=== PATIENT | female | born 1990 | race Two or more races ===

== ENCOUNTER 2018-07-15 14:18 | Inpatient (IN) | payer BC, MEDICAID ==
[2018-07-15] MEDS ORDERED: cefOXitin 2 GM Vial ONE (15:02)
[2018-07-15] MEDS ORDERED: ePHEDrine 50 MG/ML SDV ONE (15:02)
[2018-07-15] MEDS ORDERED: Oxytocin 10 Units/1 ML SDV ONE (15:02)
--- NOTE | 2018-07-15 15:17 | PCM.LDHP ---
L&D History of Present Illness - General Date of Service: 07/15/18 Admit Problem/Dx: Admission Diagnosis/Problem Admission Diagnosis/Problem - Related Data Allergies/Adverse Reactions: Allergies Allergy/AdvReac Type Severity Reaction Status Date / Time No Known Allergies Allergy Verified 03/17/18 14:36 Home Medications: Home Meds PNV95/Ferrous Fumarate/FA [ Vitamin Tablet] 1 tab PO DAILY 03/17/18 [ History] Omeprazole 20 mg PO BEDTIME #30 cap.sr 03/18/18 [Rx] Ondansetron [Zofran ODT] 4 mg PO Q6H PRN #45 tab.dis 03/18/18 [Rx] hydrOXYzine pamoate [Vistaril] 25 - 50 mg PO BEDTIME PRN 30 Days cap 03/18/18 [ Rx] Amoxicillin 875 mg PO BID 7 Days #14 tablet 07/05/18 [Rx] H&P Review of Systems - Review of Systems: Review Of Systems: See Below General: Reports: No Symptoms HEENT: Reports: No Symptoms Pulmonary: Reports: No Symptoms Cardiovascular: Reports: No Symptoms Gastrointestinal: Reports: No Symptoms Genitourinary: Reports: No Symptoms Musculoskeletal: Reports: No Symptoms Skin: Reports: No Symptoms Psychiatric: Reports: No Symptoms Neurological: Reports: No Symptoms Hematologic/Lymphatic: Reports: No Symptoms Immunologic: Reports: No Symptoms L&D Exam - Exam Exam: See Below - OB Specific Contraction Intensity: Strong Movement: Active Heart Tones: Present Heart Rate (FHR) Variability: Moderate (6-25 bmp) Presentation: Vertex - Fox Score Fox Score Cervix Position: Anterior Fox Score Consistency: Soft Fox Score Effacement: >80% Fox Score Dilation: 3-4 cm Fox Score 's Station: -1 ,0 Fox Score Total: 11 - Exam General: Alert, Oriented, Cooperative HEENT: PERRLA, Conjunctiva Clear, EACs Clear, EOMI, Hearing Intact, Mucosa Moist & Mounds, Nares Patent, Normal Nasal Septum, Posterior Pharynx Clear, Pupils Equal, Pupils Reactive, TMs Clear Neck: Supple, Trachea Midline Lungs: Clear to Auscultation, Normal Respiratory Effort Cardiovascular: Regular Rate, Regular Rhythm GI/Abdominal Exam: Normal Bowel Sounds, Soft, Non-Tender, No Organomegaly, No Distention, No Abnormal Bruit, No Mass, Pelvis Stable Rectal Exam: Normal Exam, Normal Rectal Tone Genitourinary: Normal external exam, Normal bimanual exam, Normal speculum exam Back Exam: Normal Inspection, Full Range of Motion Extremities: Normal Inspection, Normal Range of Motion, Non-Tender, No Pedal Edema, Normal Capillary Refill Skin: Warm, Dry, Intact Neurological: Cranial Nerves Intact, Reflexes Equal Bilateral Psychiatric: Alert, Normal Affect, Normal Mood - Patient Data Lab Results Last 24 hrs: Laboratory Results - last 24 hr 07/15/18 Range/Units 14:43 Urine Color Yellow Urine Appearance Cloudy Urine pH 6.0 (4.5-8.0) Ur Specific [place] 1.015 (1.008-1.030) Urine Protein Negative (NEGATIVE) mg/dL Urine Glucose (UA) Negative (NEGATIVE) mg/dL Urine Ketones Negative (NEGATIVE) mg/dL Urine Occult Blood Negative (NEGATIVE) Urine Nitrite Negative (NEGATIVE) Urine Bilirubin Negative (NEGATIVE) Urine Urobilinogen Normal (NORMAL) mg/dL Ur Leukocyte Esterase Large (NEGATIVE) Urine RBC 0-5 (0-5) Urine WBC 30-40 H (0-5) Ur Epithelial Cells Moderate Amorphous Sediment Not seen Urine Bacteria Many Urine Mucus Moderate - Problem List (1) Labor established SNOMED Code(s): 47522675 ICD Code: [id number] - Status: Acute Current Visit: Yes (2) Non-Welsh speaking patient SNOMED Code(s): 269696366, 079066166 ICD Code: Z78.9 - OTHER SPECIFIED HEALTH STATUS Status: Acute Current Visit: No (3) SNOMED Code(s): 68049679 ICD Code: Z34.90 - ENCNTR FOR SUPRVSN OF NORMAL , UNSP, UNSP TRIMESTER Status: Acute Current Visit: No Qualifiers: Weeks of gestation: 38 weeks Qualified Code(s): Z3A.38 - 38 weeks gestation of Problem List Initiated/Reviewed/Updated: Yes Orders Last 24hrs: Active Orders 24 hr Category Date Time Status OB Check [OM.PC] Click to Edit Care 07/15/18 14:43 Ordered Assessment/Plan Comment:: 07/15/2018 28 yo came in laboring SVE-90/0 bulgy bag of payton Cece regular FHTs category one Patient a RCS Plan- OR crew and surgeon notified Will proceed with a repeat
[2018-07-15] MEDS ORDERED: Lactated Ringers 1,000 ML ONE (15:58)
[2018-07-15] MEDS ORDERED: Ondansetron 4 MG/2 ML SDV IV PRN (16:30)
[2018-07-15] MEDS ORDERED: Simethicone 80 MG Tab.Chew PO PRN (16:30)
[2018-07-15] MEDS ORDERED: Naloxone 0.4 MG/ML SDV IVPUSH PRN (16:30)
[2018-07-15] MEDS ORDERED: ePHEDrine 50 MG/ML SDV IVPUSH PRN (16:30)
[2018-07-15] MEDS ORDERED: diphenhydrAMINE 50 MG/ML SDV IVPUSH PRN (16:30)
[2018-07-15] MEDS ORDERED: Acetaminophen 325 MG Tab PO PRN (16:30)
[2018-07-15] MEDS ORDERED: Sennosides 8.6 MG Tab PO PRN (16:30)
[2018-07-15] MEDS ORDERED: Lanolin 100% Cream 40 GM Tube TOP PRN (16:30)
[2018-07-15] MEDS ORDERED: diphenhydrAMINE 25 MG Cap PO PRN (16:30)
[2018-07-15] MEDS ORDERED: Docusate Sodium 100 MG Cap PO PRN (16:30)
[2018-07-15] MEDS ORDERED: Aluminum Hydroxide/Magnesium Hydroxide/Simethicone Susp 30 ML Cup PO PRN (16:30)
[2018-07-15] MEDS: Acetaminophen/HYDROcodone 325-5 MG Tab PO PRN ×2 (17:25→22:20)
[2018-07-15] MEDS: Lactated Ringers 1,000 ML IV SCH ×2 (17:56→19:59)
[2018-07-15] MEDS: Ibuprofen 800 MG Tab PO PRN (18:36)
[2018-07-15] MEDS: Morphine 2 MG/ML Syringe IVPUSH PRN ×2 (19:21→20:36)
[2018-07-16] MEDS: Acetaminophen/HYDROcodone 325-5 MG Tab PO PRN ×4 (02:25→19:34)
[2018-07-16] MEDS: Ibuprofen 800 MG Tab PO PRN ×3 (04:24→21:01)
[2018-07-16] MEDS: Morphine 2 MG/ML Syringe IVPUSH PRN ×2 (05:23→07:35)
--- NOTE | 2018-07-16 08:12 | OR ---
DATE OF PROCEDURE: 07/15/2018 SURGEON: Hany Charles MD PROCEDURE: section. HUMAN RESOURCES TRAINER: Esther Melendez CNM PREOPERATIVE DIAGNOSIS: Recurrent section. POSTOPERATIVE DIAGNOSIS: Recurrent section. COMPLICATION: None. ANESTHESIA: Spinal. RISKS: Risks, benefits, alternatives, and limitations were explained both by Esther Melendez and myself, using manager consumer insights in Korean. The patient understands these risks and wishes to proceed. PROCEDURE IN DETAIL: She was placed in supine position. A Pfannenstiel-type incision was made, after being prepped and draped. This was performed through the previous section location. This was carried down with electrocautery to the external oblique aponeurosis, which was then opened also with electrocautery. A muscle sparing technique was used to enlarge the space for delivery. The peritoneum was then entered sharply. The bladder was identified and reflected inferiorly. The uterus was then readily identified. This was opened bluntly. This was then enlarged with the bandage scissors. The baby was delivered with mild difficulty. The cord was subsequently clamped x2 and transected. The uterus was unable to be delivered from the abdomen due to dense adhesions. This was then closed in 3 layers of #1 Vicryl one suture. Of note, the placenta was delivered in toto, and this was verified a second time. Once the uterus was closed, this was irrigated again as it was prior to closure of the uterus. The muscle was then reapproximated with #1 Vicryl suture. The fascia was then closed with #1 Vicryl suture in a running fashion x2. The subcutaneous tissue was closed. The skin was closed with 4-0 Vicryl. Dermabond was applied. The patient tolerated the procedure well. Hany Charles MD /[id number]
[2018-07-16] MEDS: Lactated Ringers 1,000 ML IV SCH (09:23)
--- NOTE | 2018-07-16 10:51 | PN ---
DATE OF SERVICE: 07/16/2018 SUBJECTIVE: The patient is doing very well today. Pain is better controlled this morning. No nausea, vomiting, shortness of breath, or chest pain. Some difficulties with breast feeding. OBJECTIVE: VITAL SIGNS: Vital signs are stable. CARDIOVASCULAR: Regular rate. RESPIRATORY: Lungs clear to auscultation bilaterally. SKIN: Incision healing well. LABORATORY RESULTS: Shows 60 of bilirubin with a hemoglobin of 12.5. ASSESSMENT: Status post section. PLAN: Continue advancing diet. We will work with document management consultant today and increase activity. Hany Charles MD /[id number]
[2018-07-17] MEDS: Acetaminophen/HYDROcodone 325-5 MG Tab PO PRN ×3 (00:37→12:35)
[2018-07-17] MEDS: Ibuprofen 800 MG Tab PO PRN ×2 (03:56→12:35)
--- NOTE | 2018-07-17 11:10 | PN ---
DATE OF SERVICE: 07/17/2018 SUBJECTIVE: The patient doing well today. Pain is well controlled. No nausea, vomiting, shortness of breath, or chest pain. Tolerating diet, passing gas. OBJECTIVE: VITAL SIGNS: Stable. She is afebrile. CARDIOVASCULAR: Regular rhythm and rate. RESPIRATORY: Lungs clear to auscultation bilaterally. ABDOMEN: Incision healing well without any evidence of cellulitis or drainage. ASSESSMENT: Status post . PLAN: The patient may be discharged today. Discharge medications were given. She still has a few things to work on with the OB group. Meantime, she can shower. She is tolerating diet. She is on ibuprofen only for pain at this point. Hany Charles MD /[id number]
== END 2018-07-17 13:20 | disposition home or self-care (01) | DRG 540 ==
LOC: JP.OBCHECK 14:18 → JP.OB 14:55 → JP.MS 15:52
PROVIDERS: ADMIT Advanced Practice Midwife; ATTEND Surgery
PROC: 10D00Z1 Extraction of Products of Conception, Low, Open Approach (ICD-10-PCS; principal; 2018-07-15)
DX: O34.211 Maternal care for low transverse scar from previous cesarean delivery (principal); N85.8 Other specified noninflammatory disorders of uterus; Z37.0 Single live birth; O99.824 Streptococcus B carrier state complicating childbirth; Z3A.38 38 weeks gestation of pregnancy
CPT/HCPCS: 36415; 59409; 80048; 80305-QW; 81001; 85025; A9270-GY; J0694; J2270; J2590; J7120

== ENCOUNTER 2018-08-07 08:53 | Emergency (ER) | payer BC, MEDICAID ==
[2018-08-07] MEDS ORDERED: Sodium Chloride 0.9% 10 ML Syringe FLUSH PRN (09:28)
[2018-08-07] MEDS ORDERED: Lactated Ringers 1,000 ML IV SCH (09:30)
[2018-08-07] MEDS ORDERED: fentaNYL 100 MCG/2 ML SDV IVPUSH ONE (09:30)
--- NOTE | 2018-08-07 09:31 | EDM.PDOC ---
ED HPI GENERAL MEDICAL PROBLEM - General Chief Complaint: Abdominal Pain Stated Complaint: [facility] Time Seen by Provider: 08/07/18 09:24 Source of Information: Reports: Patient, RN Notes Reviewed History Limitations: Reports: Language Barrier - History of Present Illness INITIAL COMMENTS - FREE TEXT/NARRATIVE: 28-year-old female presents emergency department today complaint of right upper quadrant abdominal pain, she is status post 3 weeks does have a known history of gallbladder disease urine . States the pain has gotten significantly worse and right upper quadrant, is [place] speaking so there is a language barrier Right Middle Abdomen Pain Score (Numeric/FACES): 10 - Related Data Allergies Allergy/AdvReac Type Severity Reaction Status Date / Time No Known Allergies Allergy Verified 03/17/18 14:36 Home Meds: Home Meds PNV95/Ferrous Fumarate/FA [ Vitamin Tablet] 1 tab PO DAILY 03/17/18 [ History] Omeprazole 20 mg PO BEDTIME #30 cap.sr 03/18/18 [Rx] hydrOXYzine pamoate [Vistaril] 25 - 50 mg PO BEDTIME PRN 30 Days cap 03/18/18 [ Rx] Past Medical History Gastrointestinal History: Reports: Other (See Below) Other Gastrointestinal History: 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: Social & Family History - Family History Family Medical History: Noncontributory - Tobacco Use Smoking Status *Q: Never Smoker - Caffeine Use Caffeine Use: Reports: Soda - Recreational Drug Use Recreational Drug Use: No ED ROS GENERAL - Review of Systems Review Of Systems: See Below Constitutional: Denies: Fever, Chills HEENT: Reports: No Symptoms Respiratory: Reports: No Symptoms Cardiovascular: Reports: No Symptoms GI/Abdominal: Reports: Abdominal Pain, Nausea : Reports: No Symptoms ED EXAM, GI/ABD - Physical Exam Exam: See Below Exam Limited By: Language Barrier General Appearance: Alert, Mild Distress Neck: Normal Inspection, Supple, Non-Tender, Full Range of Motion Respiratory/Chest: No Respiratory Distress, Lungs Clear, Normal Breath Sounds, No Accessory Muscle Use, Chest Non-Tender Cardiovascular: Regular Rate, Rhythm, No Murmur GI/Abdominal Exam: Normal Bowel Sounds, Soft, Tender (Right upper quadrant) Course - Vital Signs Last Recorded V/S: Last Vital Signs Temp 96.4 F 08/07/18 09:12 Pulse 94 05/11/19 09:12 Resp 16 08/07/18 09:12 BP 121/81 08/07/18 09:12 Pulse Ox 97 08/07/18 09:12 - Orders/Labs/Meds Orders: Active Orders 24 hr Category Date Time Status Peripheral IV Care [RC] . DIRECTED Care 08/07/18 09:28 Active UA W/MICROSCOPIC [URIN] Urgent Lab 08/07/18 09:28 Ordered Iopamidol [Isovue-300 (61%)] Med 08/07/18 09:55 Active 100 ml IV . DIRECTED PRN Lactated Ringers [Ringers, Lactated] 1,000 ml Med 08/07/18 09:30 Active IV ASDIRECTED Sodium Chloride 0.9% [Normal Saline] 74 ml Med 08/07/18 10:00 Active IV ASDIRECTED Sodium Chloride 0.9% [Saline Flush] Med 08/07/18 09:28 Active 10 ml FLUSH ASDIRECTED PRN Peripheral IV Insertion Adult [OM.PC] Urgent Oth 08/07/18 09:28 Ordered Medication Orders Lactated Ringer's (Ringers, Lactated) 1,000 mls @ 500 mls/hr IV ASDIRECTED [facility] Last Admin: 08/07/18 10:21 Dose: 500 mls/hr Sodium Chloride (Normal Saline) 74 mls @ 3 mls/sec IV ASDIRECTED [facility] Last Admin: 08/07/18 10:11 Dose: 3 mls/sec Iopamidol (Isovue-300 (61%)) 100 ml IV . DIRECTED PRN PRN Reason: RADIOLOGY EXAM Stop: 08/08/18 09:56 Last Admin: 08/07/18 10:11 Dose: 100 ml Sodium Chloride (Saline Flush) 10 ml FLUSH ASDIRECTED PRN PRN Reason: Keep Vein Open Last Admin: 08/07/18 09:39 Dose: 10 ml Labs: Laboratory Tests 08/07/18 08/07/18 08/07/18 Range/Units 09:36 09:36 09:36 WBC 6.5 (4.5-11.0) K/uL RBC 5.02 (3.30-5.50) M/uL Hgb 14.5 D (12.0-15.0) g/dL Hct 43.5 (36.0-48.0) % MCV 87 (80-98) fL MCH 29 (27-31) pg MCHC 33 (32-36) % Plt Count 290 (150-400) K/uL Neut % (Auto) 48 (36-66) % Lymph % (Auto) 39 (24-44) % [place] % (Auto) 10 H (2-6) % Eos % (Auto) 2 (2-4) % Baso % (Auto) 1 (0-1) % Sodium 138 L (140-148) mmol/L Potassium 4.3 (3.6-5.2) mmol/L Chloride 102 (100-108) mmol/L Carbon Dioxide 26 (21-32) mmol/L Anion Gap 14.3 H (5.0-14.0) mmol/L BUN 11 D (7-18) mg/dL Creatinine 0.7 (0.6-1.0) mg/dL Est Cr Clr Drug Dosing 85.94 mL/min Estimated GFR (MDRD) > 60 (>60) Glucose 93 (74-106) mg/dL Lactic Acid 1.7 (0.4-2.0) mmol/L Calcium 9.3 (8.5-10.1) mg/dL Total Bilirubin 0.8 (0.2-1.0) mg/dL AST 33 (15-37) U/L ALT 35 (12-78) U/L Alkaline Phosphatase 67 (46-116) U/L Total Protein 7.4 (6.4-8.2) g/dL Albumin 3.2 L (3.4-5.0) g/dL Globulin 4.2 H (2.3-3.5) g/dL Albumin/Globulin Ratio 0.8 L (1.2-2.2) Meds: Medications Generic Name Dose Route Start Last Admin Trade Name Freq PRN Reason Stop Dose Admin Lactated Ringer's 1,000 mls @ 500 mls/hr 08/07/18 09:30 08/07/18 10:21 Ringers, Lactated IV 500 mls/hr ASDIRECTED VINOD Administration Sodium Chloride 74 mls @ 3 mls/sec 08/07/18 10:00 08/07/18 10:11 Normal Saline IV 3 mls/sec ASDIRECTED VINOD Administration Iopamidol 100 ml 08/07/18 09:55 08/07/18 10:11 Isovue-300 (61%) IV 08/08/18 09:56 100 ml . DIRECTED PRN Administration RADIOLOGY EXAM Sodium Chloride 10 ml 08/07/18 09:28 08/07/18 09:39 Saline Flush FLUSH 10 ml ASDIRECTED PRN Administration Keep Vein Open Discontinued Medications Generic Name Dose Route Start Last Admin Trade Name Everardoq PRN Reason Stop Dose Admin Fentanyl 50 mcg 08/07/18 09:30 08/07/18 09:38 Sublimaze IVPUSH 08/07/18 09:31 50 mcg ONETIME ONE Administration Departure - Departure Time of Disposition: 11:36 Disposition: Home, Self-Care 01 Condition: Fair Clinical Impression: Abdominal pain Qualifiers: Abdominal location: right upper quadrant Qualified Code(s): R10.11 - Right upper quadrant pain - Discharge Information Referrals: Esther Melendez CNM [Primary Care Provider] - Forms: ED Department Discharge Additional Instructions: Use ibuprofen for baseline pain control, use hydrocodone for breakthrough pain, please return to the radiology department on Thursday for further evaluation of her gallbladder at which time Dr. Alexander will review the results with you - My Orders Last 24 Hours: My Active Orders 08/07/18 09:28 Peripheral IV Care [RC] . DIRECTED UA W/MICROSCOPIC [URIN] Urgent Sodium Chloride 0.9% [Saline Flush] 10 ml FLUSH ASDIRECTED PRN Peripheral IV Insertion Adult [OM.PC] Urgent 08/07/18 09:30 Lactated Ringers [Ringers, Lactated] 1,000 ml IV ASDIRECTED 08/07/18 09:55 Iopamidol [Isovue-300 (61%)] 100 ml IV . DIRECTED PRN 08/07/18 10:00 Sodium Chloride 0.9% [Normal Saline] 74 ml IV ASDIRECTED - Assessment/Plan Last 24 Hours: My Active Orders 08/07/18 09:28 Peripheral IV Care [RC] . DIRECTED UA W/MICROSCOPIC [URIN] Urgent Sodium Chloride 0.9% [Saline Flush] 10 ml FLUSH ASDIRECTED PRN Peripheral IV Insertion Adult [OM.PC] Urgent 08/07/18 09:30 Lactated Ringers [Ringers, Lactated] 1,000 ml IV ASDIRECTED 08/07/18 09:55 Iopamidol [Isovue-300 (61%)] 100 ml IV . DIRECTED PRN 08/07/18 10:00 Sodium Chloride 0.9% [Normal Saline] 74 ml IV ASDIRECTED Plan: Assessment Acuity = acute Site and laterality = right upper quadrant pain Etiology = suspicious for underlying gallbladder disease] Manifestations = none Location of injury = Home Lab values = CBC, CMP unremarkable CT scan shows no acute process Plan Called discussed case Dr. Alexander at 11:00 plan is to set her up for HIDA scan on Thursday he will follow up with her when they paged him with results. She is provided hydrocodone 5/325 one tab by mouth 3 times a day when necessary total # 10 for pain control she was counseled on the effects of this medication and breast-feeding she will only use it for severe pain This note was dictated using [employer] voice recognition software please call with any questions on syntax or grammar.
[2018-08-07] MEDS ORDERED: Iopamidol 612 MG/ML 100 ML Bottle IV PRN (09:55)
--- NOTE | 2018-08-07 11:13 | CRLCT ---
TECHNIQUE: Right upper quadrant pain. TECHNIQUE: Non contrast-enhanced CT abdomen pelvis coronal sagittal reformatted images obtained. Comparison: Comparison studies are available. Findings: Significant motion degrades quality of the study. Heart size is normal. No pericardial effusion or pleural effusion. Lung bases are clear. The spleen pancreas gallbladder adrenal glands are unremarkable. Liver is unremarkable. No abdominal aortic aneurysm. Kidneys enhance symmetrically. No hydronephrosis. No renal calculi. The bowel is unremarkable. Normal appendix is visualized. No bowel obstruction. Enlargement and heterogeneity of the uterus there is fluid in the endometrial cavity. Uterus has a appearance. Linear low-attenuation area within the lower anterior uterine segment. This is presumed to represent cystic section incision site There is subcutaneous soft tissue stranding and small amount of fluid in the lower abdominal wall. Small amount of fluid in the subcutaneous soft tissues measuring 1.8 x 1 cm. Findings likely postoperative. Slight soft tissue stranding in the a prevesical space. There is no abscess or organized fluid collections. Small amount of fluid in the section incision site. Small amount of mild of fluid in the pelvis. Irregular soft tissue density in the right lower abdominal wall probably reflects an area of scarring. No suspicious bony lesions. Impression 1. Findings in the pelvis most likely reflect a uterus with small amount of fluid in the section incision site. There is subcutaneous stranding and small amount of fluid along the incision tract. There is minimal soft tissue stranding in the prevesical space. There is no abscess or drainable fluid collections present. Recommend correlation with clinical history. 2. There is otherwise no acute findings in the upper abdomen. Please note that all CT scans at this facility use dose modulation, iterative reconstruction, and/or weight-based dosing when appropriate to reduce radiation dose to as low as reasonably achievable. Dictated by Gin Viera MD @ Aug 07 2018 10:52AM Signed by Dr. Gin Viera @ Aug 07 2018 11:12AM
== END 2018-08-07 12:09 | disposition home or self-care (01) ==
LOC: JP.ED 08:53
DX: R10.11 Right upper quadrant pain (principal)
CPT/HCPCS: 36415; 74177; 80053; 83605; 85025; 96361; 96374; 99284; J3010; J7030; J7120; Q9967

== ENCOUNTER 2018-12-03 14:31 | Emergency (ER) | payer BC, MEDICAID ==
--- NOTE | 2018-12-03 15:17 | EDM.PDOC ---
ED HPI GENERAL MEDICAL PROBLEM - General Chief Complaint: Upper Extremity Injury/Pain Stated Complaint: SWOLLEN LEFT HAND Time Seen by Provider: 12/03/18 15:05 Source of Information: Reports: Patient, RN History Limitations: Reports: Language Barrier (limited Kazakh) - History of Present Illness INITIAL COMMENTS - FREE TEXT/NARRATIVE: 28 yo female presents with a red, puffy, itchy L hand dorsally. No fever. No other sx's. Works at the [employer]. Not exposed to chemicals. Onset: Gradual Onset Date: 12/02/18 Duration: Day(s): (1+), Getting Worse Location: Reports: Upper Extremity, Left Quality: Reports: Other (itchy) Severity: Moderate Improves with: Reports: None Worsens with: Reports: Other (? 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 Denies: Wound, Burn(s), Urticaria Neurological: Reports: No Symptoms ED EXAM, GENERAL - Physical Exam Exam: See Below Exam Limited By: No Limitations General Appearance: Alert, WD/WN, No Apparent Distress Eye Exam: Bilateral Eye: Normal Inspection Ears: Hearing Grossly Normal Ear Exam: Bilateral Ear: Auricle Normal, Canal Normal Nose: Normal Inspection, No Blood Throat/Mouth: Normal Inspection, Normal Lips, Normal Oropharynx, Normal Voice, No Airway Compromise Head: Atraumatic, Normocephalic Neck: Normal Inspection Respiratory/Chest: No Respiratory Distress, Lungs Clear, Normal Breath Sounds, No Accessory Muscle Use Cardiovascular: Regular Rate, Rhythm, No Edema Extremities: Other (red L hand dorsally) Neurological: Alert, Oriented, CN II-XII Intact, Normal Cognition, No Motor/ Sensory Deficits Psychiatric: Normal Affect, Normal Mood Skin Exam: Warm, Dry, Intact, Erythema (L hand dorsally), Rash (L hand dorsally , confluent and red. slightly puffy, tiny water blisters present on prox phalanges dorsally.) Course - Vital Signs Last Recorded V/S: Last Vital Signs Temp 35.9 C 12/03/18 15:07 Pulse 99 12/03/18 15:07 Resp 16 12/03/18 15:07 BP 125/74 12/03/18 15:07 Pulse Ox 95 12/03/18 15:07 Departure - Departure Time of Disposition: 15:19 Disposition: Home, Self-Care 01 Condition: Good Clinical Impression: Contact dermatitis Qualifiers: Contact dermatitis type: unspecified Contact dermatitis trigger: unspecified trigger Qualified Code(s): L25.9 - Unspecified contact dermatitis, unspecified cause - Discharge Information *PRESCRIPTION DRUG MONITORING PROGRAM REVIEWED*: No *COPY OF PRESCRIPTION DRUG MONITORING REPORT IN PATIENT TEE: No Instructions: Contact Dermatitis, [id number] Referrals: PCP,None [Primary Care Provider] - Additional Instructions: Take diphenhydramine 50 mg every 4-6 hrs as needed for itch. Take prednisone as directed until gone. Recheck in the clinic on Thursday, return here if a lot worse. Avoid scratching. Elevate hand above the heart.
[2018-12-03] MEDS ORDERED: diphenhydrAMINE 25 MG/10 ML CUP PO ONE (15:19)
== END 2018-12-03 15:40 | disposition home or self-care (01) ==
LOC: JP.ED 14:31
DX: L25.9 Unspecified contact dermatitis, unspecified cause (principal); Z90.49 Acquired absence of other specified parts of digestive tract
CPT/HCPCS: 99282; A9270

== ENCOUNTER 2019-01-13 17:10 | Emergency (ER) | payer BC, MEDICAID ==
--- NOTE | 2019-01-13 17:47 | EDM.PDOC ---
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 No fever. Minimal rhinorrhea. Her oldest daughter has similar sx's. Has not been to the clinic. Onset: Gradual Onset Date: 01/11/19 Duration: Day(s):, Constant Location: Reports: Neck (throat) Quality: Reports: Dull Severity: Mild Improves with: Reports: None Worsens with: Reports: Eating (0r coughing) Context: Reports: Sick Contact Associated Symptoms: Reports: Cough. 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 Denies: Shortness of Breath, Wheezing, Sputum, Hemoptysis Cardiovascular: Reports: No Symptoms Endocrine: Reports: No Symptoms GI/Abdominal: Reports: No Symptoms : Reports: No Symptoms Musculoskeletal: Reports: No Symptoms Skin: Reports: No Symptoms Neurological: Reports: No Symptoms ED EXAM, ENT - Physical Exam Exam: See Below Exam Limited By: No Limitations General Appearance: Alert, WD/WN, No Apparent Distress Eye Exam: Bilateral Eye: Normal Inspection Ears: Normal External Exam, Normal Canal, Hearing Grossly Normal, Normal TMs, TM Obscured by Cerumen (partially) Nose: Normal Inspection, No Blood, Clear Rhinorrhea Mouth/Throat: Normal Inspection, Normal Lips, Normal Oropharynx. No: Muffled Voice, Peritonsillar Mass, Pharyngeal Erythema, Tongue Swelling, Tonsillar Erythema, Tonsillar Exudates, Tonsillar Swelling, Uvular Deviation, Uvular Edema Head: Atraumatic, Normocephalic Neck: Normal Inspection, Non-Tender Respiratory/Chest: No Respiratory Distress, Lungs Clear, Normal Breath Sounds, No Accessory Muscle Use Cardiovascular: Regular Rate, Rhythm, No Edema Neurological: Alert, Oriented, CN II-XII Intact, Normal Cognition, No Motor/ Sensory Deficits Psychiatric: Normal Affect, Normal Mood Skin: Warm, Dry, Intact, Normal Color, No Rash Course - Vital Signs Last Recorded V/S: Last Vital Signs Temp 36.7 C 01/13/19 17:36 Pulse 114 H 01/13/19 17:36 Resp 16 01/13/19 17:36 BP 138/88 01/13/19 17:36 Pulse Ox 100 01/13/19 17:36 Departure - Departure Time of Disposition: 17:45 Disposition: Home, Self-Care 01 Condition: Good Clinical Impression: Viral respiratory infection - Discharge Information *PRESCRIPTION DRUG MONITORING PROGRAM REVIEWED*: No *COPY OF PRESCRIPTION DRUG MONITORING REPORT IN PATIENT TEE: No Instructions: Viral Respiratory Infection, [id number] Referrals: PCP,None [Primary Care Provider] - Additional Instructions: Take acetaminophen up to 650 mg every 4 hrs for pain relief. Take Robitussin DM 2 tsp every 4-6 hrs for cough. Frequent hand washing to reduce spread. Follow up as needed in the clinic.
== END 2019-01-13 17:57 | disposition home or self-care (01) ==
LOC: JP.ED 17:10
DX: J98.8 Other specified respiratory disorders (principal)
CPT/HCPCS: 99282

== ENCOUNTER 2019-03-13 09:11 | Emergency (ER) | payer BC ==
[2019-03-13] MEDS ORDERED: Ketorolac 60 MG/2 ML SDV IM ONE (09:47)
--- NOTE | 2019-03-13 09:55 | EDM.PDOC ---
ED HPI GENERAL MEDICAL PROBLEM - General Chief Complaint: Neck Problem Stated Complaint: pain in the neck (stiff) Time Seen by Provider: 03/13/19 09:35 Source of Information: Reports: Patient History Limitations: Reports: Language Barrier (Speaks poor Moroccan) - History of Present Illness INITIAL COMMENTS - FREE TEXT/NARRATIVE: 29-year-old female woke this morning with a sharp pain along the left side of her neck. She is holding her head tilted to the right and slightly rotated, it is painful to straighten her neck. No specific trauma or injury, she went to bed feeling fine. She took some ibuprofen this morning. No other complaints, no fevers or chills. 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 Surgical History Head Surgeries/Procedures: Reports: None GI Surgical History: Reports: Cholecystectomy Dermatological Surgical History: Reports: None Social & Family History - Family History Family Medical History: Noncontributory - Tobacco Use Smoking Status *Q: Never Smoker - Caffeine Use Caffeine Use: Reports: Coffee, Soda ED ROS GENERAL - Review of Systems Review Of Systems: See Below Constitutional: Denies: Fever, Chills Respiratory: Denies: Shortness of Breath Cardiovascular: Denies: Chest Pain GI/Abdominal: Denies: Nausea, Vomiting Skin: Denies: Rash Neurological: Denies: Headache ED EXAM, UPPER BACK/NECK PAIN - Physical Exam Exam: See Below Exam Limited By: Language Barrier General Appearance: Alert, Other (Looks uncomfortable while holding her head rotated and leaning toward the right) Head Exam: Atraumatic Neck Exam: Other (Very tender to palpation along the left paracervical muscles and trapezius, especially proximally in the higher neck.) Cardiovascular/Respiratory: Normal Breath Sounds Neurologic: No Motor/Sensory Deficits, Oriented x 3 Course - Vital Signs Last Recorded V/S: Last Vital Signs Temp 98.5 F 03/13/19 09:42 Pulse 94 03/13/19 09:42 Resp 22 H 03/13/19 09:42 BP 135/95 H 03/13/19 09:42 Pulse Ox 97 03/13/19 09:42 - Orders/Labs/Meds Meds: Medications Discontinued Medications Generic Name Dose Route Start Last Admin Trade Name Ya PRN Reason Stop Dose Admin Ketorolac Tromethamine 60 mg 03/13/19 09:47 03/13/19 10:05 Toradol IM 03/13/19 09:48 60 mg ONETIME ONE Administration - Re-Assessments/Exams Free Text/Narrative Re-Assessment/Exam: 03/13/19 09:53 60 mg of IM Toradol was given and she will be given some Flexeril as well. I tried to encourage her to try to gently straighten her neck and apply some heat to the area and continue with gentle range of motion and try to increase her activity as tolerated. Also continue with ibuprofen. This will resolve over a couple of days. She can recheck in 3 to 4 days if not improving satisfactorily. Departure - Departure Time of Disposition: 10:09 Disposition: Home, Self-Care 01 Clinical Impression: Neck pain, acute - Discharge Information Instructions: Cervical Sprain, [id number] Referrals: PCP,None [Primary Care Provider] - Forms: ED Department Discharge Care Plan Goals: Attempt to gently straighten your head and move your neck as tolerated, and continue with a regular dose of ibuprofen for the next 2 days. Heating the area may be helpful. Recheck in 2 to 3 days if not improving, and take Flexeril 3 times a day as prescribed to loosen the muscle. Sepsis Event Note - Evaluation Sepsis Screening Result: No Definite Risk - Focused Exam Vital Signs: Vital Signs Temp Pulse Resp BP Pulse Ox 03/13/19 09:42 98.5 F 94 22 H 135/95 H 97 03/13/19 09:37 98.5 F 94 22 H 135/95 H 97 Date Exam was Performed: 03/13/19 Time Exam was Performed: 11:40
== END 2019-03-13 10:09 | disposition home or self-care (01) ==
LOC: JP.ED 09:11
DX: M54.2 Cervicalgia (principal)
CPT/HCPCS: 96372; 99283; J1885

== ENCOUNTER 2019-03-20 14:40 | Emergency (ER) | payer BC ==
--- NOTE | 2019-03-20 15:19 | EDM.PDOC ---
ED HPI GENERAL MEDICAL PROBLEM - General Chief Complaint: Respiratory Problem Stated Complaint: FLU-LIKE SYMPTOMS Time Seen by Provider: 03/20/19 15:18 Source of Information: Reports: Patient History Limitations: Reports: No Limitations - History of Present Illness INITIAL COMMENTS - FREE TEXT/NARRATIVE: 29 years old female patient presented with chief complaint of nasal congestion, sore throat, productive cough with greenish sputum, and fever started 3 days ago. Not getting any better. Denies any sick contacts. Denies any chest pain shortness breath. Denies abdominal pain diarrhea or constipation. Denies any urinary symptom. 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 ED EXAM, GENERAL - Physical Exam Exam: See Below Exam Limited By: No Limitations General Appearance: Alert, WD/WN, No Apparent Distress Nose: Nasal Drainage Throat/Mouth: Other (Posterior pharyngeal wall erythema. No exudate) Head: Atraumatic, Normocephalic Neck: Normal Inspection, Supple, Non-Tender, Full Range of Motion Respiratory/Chest: No Respiratory Distress, Lungs Clear, Normal Breath Sounds, No Accessory Muscle Use, Chest Non-Tender Cardiovascular: Normal Peripheral Pulses, Regular Rate, Rhythm, No Edema, No Gallop, No JVD, No Murmur, No Rub GI/Abdominal: Normal Bowel Sounds, Soft, Non-Tender, No Organomegaly, No Distention, No Abnormal Bruit, No Mass Extremities: Normal Inspection, Normal Range of Motion, Non-Tender, Normal Capillary Refill, No Pedal Edema Neurological: Alert, Oriented, CN II-XII Intact, Normal Cognition, Normal Gait, Normal Reflexes, No Motor/Sensory Deficits Psychiatric: Normal Affect, Normal Mood Skin Exam: Warm, Dry, Intact, Normal Color, No Rash Course - Vital Signs Last Recorded V/S: Last Vital Signs Temp 36.8 C 03/20/19 15:15 Pulse 107 H 03/20/19 15:15 Resp 18 03/20/19 15:15 BP 139/80 03/20/19 15:15 Pulse Ox 98 03/20/19 15:15 - Orders/Labs/Meds Orders: Active Orders 24 hr Category Date Time Status CULTURE STREP A CONFIRMATION [RM] Stat Lab 03/20/19 15:28 Results STREP SCRN A RAPID W CULT CONF [RM] Stat Lab 03/20/19 15:28 Results - Radiology Interpretation Free Text/Narrative:: Patient was seen and examined shortly after arrival. Stable. Lab reviewed. Negative rapid strep, culture is pending, negative influenza. This is most likely viral upper respiratory illness. Advised to rest, hydration, alternate Tylenol and ibuprofen for pain and discomfort or fever. Close follow-up with PCP. Come back for any concern or any worsening symptom. Patient agrees with the plan. Stable for discharge. Departure - Departure Time of Disposition: 16:10 Disposition: Home, Self-Care 01 Condition: Good Clinical Impression: Influenza-like illness - Discharge Information Instructions: Influenza, Adult, [id number] Referrals: PCP,None [Primary Care Provider] - Forms: ED Department Discharge Additional Instructions: Advised to rest, hydration, alternate Tylenol and ibuprofen for pain and discomfort or fever. Close follow-up with PCP. Come back for any concern or any worsening symptom Sepsis Event Note - Evaluation Sepsis Screening Result: Possible Sepsis Risk - Focused Exam Vital Signs: Vital Signs Temp Pulse Resp BP Pulse Ox 03/20/19 15:15 36.8 C 107 H 18 139/80 98 03/20/19 15:08 36.8 C 107 H 18 139/80 98 Date Exam was Performed: 03/20/19 Time Exam was Performed: 16:10 - My Orders Last 24 Hours: My Active Orders 03/20/19 15:28 CULTURE STREP A CONFIRMATION [RM] Stat STREP SCRN A RAPID W CULT CONF [RM] Stat - Assessment/Plan Last 24 Hours: My Active Orders 03/20/19 15:28 CULTURE STREP A CONFIRMATION [RM] Stat STREP SCRN A RAPID W CULT CONF [RM] Stat Plan: Advised to rest, hydration, alternate Tylenol and ibuprofen for pain and discomfort or fever. Close follow-up with PCP. Come back for any concern or any worsening symptom
== END 2019-03-20 16:20 | disposition home or self-care (01) ==
LOC: JP.ED 14:40
DX: J11.1 Influenza due to unidentified influenza virus with other respiratory manifestations (principal)
CPT/HCPCS: 87081; 87804; 87804-59; 87880-QW; 99283

== ENCOUNTER 2019-04-01 21:31 | Emergency (ER) | payer SELFPAY ==
[2019-04-01] MEDS ORDERED: fentaNYL 100 MCG/2 ML SDV IVPUSH ONE (22:15)
[2019-04-01] MEDS ORDERED: Ondansetron 4 MG/2 ML SDV IVPUSH ONE (22:15)
[2019-04-01] MEDS ORDERED: Sodium Chloride 0.9% 1,000 ML IV SCH (22:15)
--- NOTE | 2019-04-01 22:18 | EDM.PDOC ---
ED HPI GENERAL MEDICAL PROBLEM - General Chief Complaint: Abdominal Pain Time Seen by Provider: 04/01/19 22:00 Source of Information: Reports: Patient History Limitations: Reports: Language Barrier (Somewhat poor Welsh) - History of Present Illness INITIAL COMMENTS - FREE TEXT/NARRATIVE: 29-year-old female with abdominal cramping, nausea and vomiting, diarrhea for the past 24 hours. She is a 9-year-old daughter with similar symptoms who is improving. No fevers or chills. She is fairly uncomfortable and having emesis every 15 to 30 minutes all day. Most of her abdominal pain is upper abdomen. 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 Denies: Fever, Chills HEENT: Reports: No Symptoms Respiratory: Denies: Shortness of Breath Cardiovascular: Denies: Chest Pain GI/Abdominal: Reports: Abdominal Pain, Diarrhea, Nausea, Vomiting Skin: Reports: No Symptoms Neurological: Denies: Headache ED EXAM, GI/ABD - Physical Exam Exam: See Below Exam Limited By: No Limitations General Appearance: Alert, Mild Distress (Looks really uncomfortable, very nauseated with occasional emesis) Eyes: Bilateral: Normal Appearance (No jaundice) Respiratory/Chest: No Respiratory Distress, Lungs Clear Cardiovascular: Regular Rate, Rhythm, Tachycardia GI/Abdominal Exam: Soft, Tender (Fairly tender to palpation in the epigastric area, no guarding) Neurological: Alert, Oriented Psychiatric: Normal Affect, Normal Mood Skin Exam: Warm, Dry Course - Vital Signs Last Recorded V/S: Last Vital Signs Temp 97.2 F 04/01/19 22:05 Pulse 105 H 04/01/19 22:34 Resp 24 H 04/01/19 22:05 BP 127/90 04/01/19 22:05 Pulse Ox 100 04/01/19 22:34 - Orders/Labs/Meds Labs: Laboratory Tests 04/01/19 04/01/19 Range/Units 22:25 22:25 WBC 10.1 (4.5-11.0) K/uL RBC 5.33 (3.30-5.50) M/uL Hgb 15.3 H (12.0-15.0) g/dL Hct 47.2 (36.0-48.0) % MCV 89 (80-98) fL MCH 29 (27-31) pg MCHC 32 (32-36) % Plt Count 298 (150-400) K/uL Neut % (Auto) 82 H (36-66) % Lymph % (Auto) 10 L (24-44) % [place] % (Auto) 7 H (2-6) % Eos % (Auto) 0 L (2-4) % Baso % (Auto) 0 (0-1) % Sodium 139 L (140-148) mmol/L Potassium 3.2 L (3.6-5.2) mmol/L Chloride 101 (100-108) mmol/L Carbon Dioxide 23 (21-32) mmol/L Anion Gap 18.2 H (5.0-14.0) mmol/L BUN 12 (7-18) mg/dL Creatinine 0.8 (0.6-1.0) mg/dL Est Cr Clr Drug Dosing 93.37 mL/min Estimated GFR (MDRD) > 60 (>60) Glucose 102 (74-106) mg/dL Calcium 9.2 (8.5-10.1) mg/dL Total Bilirubin 1.0 (0.2-1.0) mg/dL AST 43 H (15-37) U/L ALT 71 D (12-78) U/L Alkaline Phosphatase 68 (46-116) U/L Total Protein 9.0 H (6.4-8.2) g/dL Albumin 3.9 (3.4-5.0) g/dL Globulin 5.1 H (2.3-3.5) g/dL Albumin/Globulin Ratio 0.8 L (1.2-2.2) Meds: Medications Discontinued Medications Generic Name Dose Route Start Last Admin Trade Name Ya PRN Reason Stop Dose Admin Fentanyl 50 mcg 04/01/19 22:15 04/01/19 22:31 Sublimaze IVPUSH 04/01/19 22:16 50 mcg ONETIME ONE Administration Sodium Chloride 1,000 mls @ 1,000 mls/hr 04/01/19 22:15 04/01/19 22:23 Normal Saline IV 1,000 mls/hr ASDIRECTED VINOD Administration Ondansetron HCl 4 mg 04/01/19 22:15 04/01/19 22:28 Zofran IVPUSH 04/01/19 22:16 4 mg ONETIME ONE Administration - Re-Assessments/Exams Free Text/Narrative Re-Assessment/Exam: 04/01/19 22:18 An IV was started, she will be given 1 L of saline with 4 mg of IV Zofran and 50 mcg of fentanyl. CBC CMP will be obtained, likely this is viral gastroenteritis will run its course but if we improve her symptoms we can get her home. 04/01/19 23:26 Patient had no active vomiting while here, pulse improved from the 120s to 100 after 1 L of fluid. Labs were reassuring with a normal white count and hemoglobin, electrolytes normal other than potassium of 3.2. She was given 5 additional doses of Zofran to use over the next 24 to 48 hours, encouraged to increase her diet as tolerated and return if worsening. Departure - Departure Time of Disposition: 23:45 Disposition: Home, Self-Care 01 Clinical Impression: Gastroenteritis - Discharge Information Instructions: Viral Gastroenteritis, Adult Referrals: PCP,None [Primary Care Provider] - Forms: ED Department Discharge Care Plan Goals: Rest the next 1 to 2 days, use Zofran under your tongue every 6 hours for nausea if needed, and advance diet as tolerated. Return in 3 to 4 days if not improving satisfactorily or return sooner if worsening. Sepsis Event Note - Evaluation Sepsis Screening Result: Possible Sepsis Risk - Focused Exam Vital Signs: Vital Signs Temp Pulse Resp BP Pulse Ox 04/01/19 22:34 105 H 100 04/01/19 22:05 97.2 F 132 H 24 H 127/90 99 04/01/19 21:45 97.2 F 132 H 24 H 127/90 99 Date Exam was Performed: 04/02/19 Time Exam was Performed: 00:22
== END 2019-04-01 23:45 | disposition home or self-care (01) ==
LOC: JP.ED 21:31
DX: K52.9 Noninfective gastroenteritis and colitis, unspecified (principal); Z90.49 Acquired absence of other specified parts of digestive tract
CPT/HCPCS: 36415; 80053; 85025; 96361; 96374; 96375; 99283; 99284; J2405; J3010; J7030

== ENCOUNTER 2020-01-07 19:17 | Emergency (ER) | payer MEDICAID ==
[2020-01-07] MEDS ORDERED: Alum Hydrox/Mag Hydrox/Simeth 15 ML, Lidocaine 2% 15 ML PO ONE ×2 (20:03)
[2020-01-07] MEDS ORDERED: HYDROmorphone 0.5 MG/0.5 ML Syringe IVPUSH ONE (20:24)
--- NOTE | 2020-01-07 20:29 | EDM.PDOC ---
ED HPI GENERAL MEDICAL PROBLEM - General Chief Complaint: Abdominal Pain Stated Complaint: CHEST PAIN Time Seen by Provider: 01/07/20 19:50 Source of Information: Reports: Patient, Family History Limitations: Reports: No Limitations - History of Present Illness INITIAL COMMENTS - FREE TEXT/NARRATIVE: 29-year-old female with known cholelithiasis and previous gallstones presents with epigastric pain into the right upper quadrant since 2:00 this afternoon. She is very uncomfortable. Nausea but no vomiting, no fever. Onset: Sudden (Pain started fairly suddenly at 2 PM) Duration: Hour(s): Location: Reports: Abdomen (Mostly epigastric and right upper quadrant) Associated Symptoms: Reports: Malaise. Denies: Chest Pain, Fever/Chills, Shortness of Breath Epigastric Pain Score (Numeric/FACES): 10 - Related Data Allergies Allergy/AdvReac Type Severity Reaction Status Date / Time No Known Allergies Allergy Verified 01/07/20 19:34 Home Meds: Home Meds NK [No Known Home Meds] 03/20/19 [History] Past Medical History - Past Health History Medical/Surgical History: Denies Medical/Surgical History Gastrointestinal History: Reports: Other (See Below) Other Gastrointestinal History: bad gallbladder with this [employer] History: Reports: - Past Surgical History Head Surgeries/Procedures: Reports: None HEENT Surgical History: Reports: Tonsillectomy Female Surgical History: Reports: Section Dermatological Surgical History: Reports: None Social & Family History - Family History Family Medical History: Noncontributory - Tobacco Use Smoking Status *Q: Never Smoker - Caffeine Use Caffeine Use: Reports: None - Recreational Drug Use Recreational Drug Use: No ED ROS GENERAL - Review of Systems Review Of Systems: See Below Constitutional: Denies: Fever HEENT: Reports: No Symptoms Respiratory: Reports: No Symptoms Cardiovascular: Reports: No Symptoms GI/Abdominal: Reports: Abdominal Pain, Nausea. Denies: Vomiting : Reports: No Symptoms Neurological: Reports: No Symptoms Psychiatric: Reports: No Symptoms ED EXAM, GI/ABD - Physical Exam Exam: See Below Exam Limited By: No Limitations General Appearance: Alert, Moderate Distress (Appears very uncomfortable) Eyes: Bilateral: Normal Appearance (Normal hydration, no jaundice) Head: Atraumatic Respiratory/Chest: No Respiratory Distress, Lungs Clear Cardiovascular: Regular Rate, Rhythm GI/Abdominal Exam: Soft, Tender (Very tender to palpation in the right upper quadrant and epigastric area with moderate guarding, no rebound) Skin Exam: Warm, Dry Course - Vital Signs Last Recorded V/S: Last Vital Signs Temp 97.4 F 01/07/20 21:52 Pulse 84 01/07/20 21:52 Resp 18 01/07/20 21:52 BP 121/70 01/07/20 21:52 Pulse Ox 100 01/07/20 21:52 - Orders/Labs/Meds Labs: Laboratory Tests 01/07/20 01/07/20 01/07/20 Range/Units 20:18 20:18 20:21 WBC 10.1 (4.5-11.0) K/uL RBC 4.57 (3.30-5.50) M/uL Hgb 13.2 D (12.0-15.0) g/dL Hct 40.5 (36.0-48.0) % MCV 89 (80-98) fL MCH 29 (27-31) pg MCHC 33 (32-36) % Plt Count 269 (150-400) K/uL Neut % (Auto) 67 H (36-66) % Lymph % (Auto) 23 L (24-44) % [place] % (Auto) 9 H (2-6) % Eos % (Auto) 0 L (2-4) % Baso % (Auto) 0 (0-1) % Sodium 140 (140-148) mmol/L Potassium 3.4 L (3.6-5.2) mmol/L Chloride 103 (100-108) mmol/L Carbon Dioxide 26 (21-32) mmol/L Anion Gap 14.4 H (5.0-14.0) mmol/L BUN 8 (7-18) mg/dL Creatinine 0.7 (0.6-1.0) mg/dL Est Cr Clr Drug Dosing 111.01 mL/min Estimated GFR (MDRD) > 60 (>60) Glucose 95 (74-106) mg/dL Calcium 9.1 (8.5-10.1) mg/dL Total Bilirubin 1.1 H (0.2-1.0) mg/dL AST 644 H D (15-37) U/L ALT 429 H (12-78) U/L Alkaline Phosphatase 76 (46-116) U/L Total Protein 7.8 (6.4-8.2) g/dL Albumin 3.6 (3.4-5.0) g/dL Globulin 4.2 H (2.3-3.5) g/dL Albumin/Globulin Ratio 0.9 L (1.2-2.2) Lipase 101 (73-393) U/L Urine Color Yellow (YELLOW) Urine Appearance Slightly cloudy A (CLEAR) Urine pH 8.5 H (5.0-8.0) Ur Specific [place] 1.020 (1.008-1.030) Urine Protein 30 H (NEGATIVE) mg/dL Urine Glucose (UA) Negative (NEGATIVE) mg/dL Urine Ketones Negative (NEGATIVE) mg/dL Urine Occult Blood Trace-intact H (NEGATIVE) Urine Nitrite Negative (NEGATIVE) Urine Bilirubin Negative (NEGATIVE) Urine Urobilinogen 1.0 (0.2-1.0) EU/dL Ur Leukocyte Esterase Large H (NEGATIVE) Urine RBC Not seen (0-5) Urine WBC 0-5 (0-5) Ur Epithelial Cells Moderate Amorphous Sediment Moderate Urine Bacteria Rare Urine HCG, Qual /01/16 Range/Units 21:20 WBC (4.5-11.0) K/uL RBC (3.30-5.50) M/uL Hgb (12.0-15.0) g/dL Hct (36.0-48.0) % MCV (80-98) fL MCH (27-31) pg MCHC (32-36) % Plt Count (150-400) K/uL Neut % (Auto) (36-66) % Lymph % (Auto) (24-44) % [place] % (Auto) (2-6) % Eos % (Auto) (2-4) % Baso % (Auto) (0-1) % Sodium (140-148) mmol/L Potassium (3.6-5.2) mmol/L Chloride (100-108) mmol/L Carbon Dioxide (21-32) mmol/L Anion Gap (5.0-14.0) mmol/L BUN (7-18) mg/dL Creatinine (0.6-1.0) mg/dL Est Cr Clr Drug Dosing mL/min Estimated GFR (MDRD) (>60) Glucose (74-106) mg/dL Calcium (8.5-10.1) mg/dL Total Bilirubin (0.2-1.0) mg/dL AST (15-37) U/L ALT (12-78) U/L Alkaline Phosphatase (46-116) U/L Total Protein (6.4-8.2) g/dL Albumin (3.4-5.0) g/dL Globulin (2.3-3.5) g/dL Albumin/Globulin Ratio (1.2-2.2) Lipase (73-393) U/L Urine Color (YELLOW) Urine Appearance (CLEAR) Urine pH (5.0-8.0) Ur Specific [place] (1.008-1.030) Urine Protein (NEGATIVE) mg/dL Urine Glucose (UA) (NEGATIVE) mg/dL Urine Ketones (NEGATIVE) mg/dL Urine Occult Blood (NEGATIVE) Urine Nitrite (NEGATIVE) Urine Bilirubin (NEGATIVE) Urine Urobilinogen (0.2-1.0) EU/dL Ur Leukocyte Esterase (NEGATIVE) Urine RBC (0-5) Urine WBC (0-5) Ur Epithelial Cells Amorphous Sediment Urine Bacteria Urine HCG, Qual Positive H Meds: Medications Discontinued Medications Generic Name Dose Route Start Last Admin Trade Name Freq PRN Reason Stop Dose Admin Al Hydroxide/Mg Hydroxide 15 0 ml 01/07/20 20:03 01/07/20 20:16 ml/ Lidocaine HCl 15 ml PO 01/07/20 20:04 15 ml ONETIME ONE Administration Hydromorphone HCl 0.5 mg 01/07/20 20:24 01/07/20 20:31 Dilaudid IVPUSH 01/07/20 20:25 0.5 mg ONETIME ONE Administration Sodium Chloride 1,000 mls @ 500 mls/hr 01/07/20 20:30 01/07/20 20:31 Normal Saline IV 500 mls/hr ASDIRECTED VINOD Administration - Re-Assessments/Exams Free Text/Narrative Re-Assessment/Exam: 01/07/20 20:39 Patient was given a GI cocktail, CBC CMP and lipase and UA were ordered. After 20 minutes the GI cocktail had no effect she was still very comfortable so an IV was started, she was given 0.5 mg of IV Dilaudid and ultrasound was called to do a formal scan 01/07/20 21:48 White count was normal, AST and ALT both elevated. Lipase also normal. IV Dilaudid did help with pain, ultrasound confirmed a gallbladder completely full of stones to the point where visualization was near impossible. test however is positive, patient is very early probably 4 to 6 weeks gestation. Unfortunately our surgeon determined she needed to be transferred because of the , and she was accepted by Dr. Weston in the emergency room at [facility]. Should well be transferred by private car. IV lock will be left in place. 01/07/20 22:01 IMPRESSION: 1. The gallbladder is filled with gallstones, with the shadowing from the stones obscuring the majority of the gallbladder wall. There does appear to be borderline gallbladder wall thickening although no pericholecystic edema is identified. Findings are equivocal for acute cholecystitis. 2. Abnormally dilated visualized CBD at 9 mm. The majority of the CBD is not visualized. The possibility of choledocholithiasis is not excluded and should be correlated with laboratory values. If clinically indicated, this could be further assessed with an MRCP. Dictated by Robert Schroeder MD @ 01/07/2020 9:49:06 PM Departure - Departure Time of Disposition: 22:00 Disposition: DC/Tfer to Other Clinical Impression: Biliary colic Abdominal pain Qualifiers: Abdominal location: upper abdomen, unspecified Qualified Code(s): R10.10 - Upper abdominal pain, unspecified Cholelithiasis Qualifiers: Cholelithiasis location: gallbladder Cholecystitis presence: without cholecystitis Biliary obstruction: with biliary obstruction Qualified Code(s): K80.21 - Calculus of gallbladder without cholecystitis with obstruction - Discharge Information Referrals: PCP,None [Primary Care Provider] - Forms: ED Department Discharge Care Plan Goals: Patient will be transferred to [facility] for admission, transportation will be provided by her . She will be a direct admit when she arrives. Sepsis Event Note (ED) - Evaluation Sepsis Screening Result: No Definite Risk - Focused Exam Vital Signs: Vital Signs Temp Pulse Resp BP Pulse Ox 01/07/20 21:52 97.4 F 84 18 121/70 100 01/07/20 19:38 96.5 F L 83 17 139/83 100 01/07/20 19:37 96.5 F L 83 17 139/83 100
[2020-01-07] MEDS ORDERED: Sodium Chloride 0.9% 1,000 ML IV SCH (20:30)
--- NOTE | 2020-01-07 21:51 | CRLUS ---
INDICATION: Upper abdominal pain. TECHNIQUE: Transabdominal imaging. COMPARISON: None. FINDINGS: Pancreas is obscured by bowel gas. Visualized abdominal aorta is normal in caliber. Visualized infrahepatic IVC is patent. Liver is normal size and echogenicity with no appreciable intrahepatic lesions. The gallbladder appears completely full of stones (wall echo shadow sign), which limits evaluation of the gallbladder wall. Visualized portions of the wall appear borderline thickened at 3 mm. No definite pericholecystic free fluid is seen. The visualized CBD is dilated at 9 mm. The majority of the CBD is obscured. Right kidney appears unremarkable. Hepatopetal flow is demonstrated in the main portal vein. IMPRESSION: 1. The gallbladder is filled with gallstones, with the shadowing from the stones obscuring the majority of the gallbladder wall. There does appear to be borderline gallbladder wall thickening although no pericholecystic edema is identified. Findings are equivocal for acute cholecystitis. 2. Abnormally dilated visualized CBD at 9 mm. The majority of the CBD is not visualized. The possibility of choledocholithiasis is not excluded and should be correlated with laboratory values. If clinically indicated, this could be further assessed with an MRCP. Dictated by Robert Schroeder MD @ 01/07/2020 9:49:06 PM Dictated by: Robert Schroeder MD @ 01/07/2020 21:49:13 (Electronically Signed)
== END 2020-01-07 22:00 | disposition other institution (70) ==
LOC: JP.ED 19:17
DX: K80.71 Calculus of gallbladder and bile duct without cholecystitis with obstruction (principal)
CPT/HCPCS: 36415; 76705; 80053; 81001; 81025; 83690; 85025; 96361; 96374; 99285; A9270; J1170; J7030

== ENCOUNTER 2020-01-15 21:40 | Emergency (ER) | payer MEDICAID ==
--- NOTE | 2020-01-15 21:55 | EDM.PDOC ---
ED HPI GENERAL MEDICAL PROBLEM - General Chief Complaint: Abdominal Pain Stated Complaint: ABDOMEN PAIN Time Seen by Provider: 01/15/20 21:55 Source of Information: Reports: Patient, Family History Limitations: Reports: No Limitations - History of Present Illness INITIAL COMMENTS - FREE TEXT/NARRATIVE: Patient presents because of sharp cramping upper abdominal pain beginning this evening approximately 2000 hrs. after eating several tacos. She is approximately 6 weeks and was seen here 8 days ago and eventually transferred to [facility] in [place] with a diagnosis of biliary colic and extensive cholelithiasis. She underwent an MRCP to confirm the diagnosis. It was felt that she likely passed a stone at that time as her symptoms improved and other testing did as well. Eventually, the plan is to perform a cholecystectomy at approximately 15 weeks gestation. Tonight about 1900 hrs., she and her significant other 8 several tacos and within 1 hour she developed a return of sharp stabbing pain similar to that experienced 10 days ago. She was seen in the clinic 2 days ago on Thursday and prescribed omeprazole although she has not picked that up yet to begin. There is some nausea and she apparently vomited one time. At this time she rates her pain 10/10. Onset: Today, Sudden Duration: Hour(s): (2000 hrs. 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 Denies: Constipation, Diarrhea ED EXAM, GI/ABD - Physical Exam Exam: See Below Text/Narrative:: This is an adult female interviewed in room 1. She is seated on the exam table and looks uncomfortable. Exam Limited By: Language Barrier (She understands and speaks some Tamazight, similar to my command of Sammarinese.) General Appearance: Alert, Moderate Distress Respiratory/Chest: No Respiratory Distress Cardiovascular: Regular Rate, Rhythm GI/Abdominal Exam: Tender (Right upper quadrant pain on palpation.) Course - Vital Signs Last Recorded V/S: Last Vital Signs Temp 36.4 C 01/15/20 22:07 Pulse 85 01/15/20 22:07 Resp 16 01/15/20 22:07 BP 138/77 01/15/20 22:07 Pulse Ox 100 01/15/20 22:07 - Orders/Labs/Meds Meds: Medications Discontinued Medications Generic Name Dose Route Start Last Admin Trade Name Ya PRN Reason Stop Dose Admin Hydromorphone HCl 1 mg 01/15/20 22:23 01/15/20 22:32 Dilaudid IM 01/15/20 22:24 1 mg ONETIME ONE Administration - Re-Assessments/Exams Free Text/Narrative Re-Assessment/Exam: 01/15/20 22:33 Patient will be given 1 mg of Dilaudid intramuscular. Discharge documents were reviewed from [facility] in [place]. We briefly discussed the need for a 0 fat diet until they are able to perform her cholecystectomy. 01/15/20 23:58 At recheck, pain after receiving Dilaudid was now 45/10. She was able to lie down in a supine position with legs extended. She feels as though she is ready to go home. Given her symptoms tonight and how she is at this time. I do not recommend she return to work until Thursday, 16 January. She absolutely should avoid foods with fats in, even tiny amounts of fat, as it will irritate her gallbladder further. Reasons to return to emergency department reviewed. Departure - Departure Time of Disposition: 23:33 Disposition: Home, Self-Care 01 Clinical Impression: Biliary colic Cholelithiasis Qualifiers: Cholelithiasis location: gallbladder Cholecystitis presence: without cholecystitis Biliary obstruction: with biliary obstruction Qualified Code(s): K80.21 - Calculus of gallbladder without cholecystitis with obstruction - Discharge Information Instructions: Cholelithiasis, [id number], Biliary Colic, Adult, Gallbladder Eating Plan Referrals: PCP,None [Primary Care Provider] - Forms: ED Department Discharge Additional Instructions: Avoid eating foods or drinking things that have fat in them. Fat will cause the gallbladder to squeeze and will give you more pain. If you feel worse, return to the emergency department. Do not go to work tomorrow, Thursday, 15 January. Sepsis Event Note (ED) - Focused Exam Vital Signs: Vital Signs Temp Pulse Resp BP Pulse Ox 01/15/20 22:07 36.4 C 85 16 138/77 100 01/15/20 21:52 36.4 C 85 16 138/77 100
[2020-01-15] MEDS ORDERED: HYDROmorphone 1 MG/ML Syringe IM ONE (22:23)
== END 2020-01-15 23:45 | disposition home or self-care (01) ==
LOC: JP.ED 21:40
DX: O99.611 Diseases of the digestive system complicating pregnancy, first trimester (principal); K80.71 Calculus of gallbladder and bile duct without cholecystitis with obstruction; Z3A.01 Less than 8 weeks gestation of pregnancy
CPT/HCPCS: 96372; 99283; J1170

== ENCOUNTER 2020-08-30 09:17 | Inpatient (IN) | payer MEDICAID ==
[2020-08-30] MEDS ORDERED: Acetaminophen 500 MG Tab PO PRN (09:37)
[2020-08-30] MEDS ORDERED: cefOXitin 1 GM Vial ONE (11:29)
--- NOTE | 2020-08-30 11:40 | PCM.LDHP ---
L&D History of Present Illness - General Date of Service: 08/30/20 Admit Problem/Dx: Admission Diagnosis/Problem Admission Diagnosis/Problem Source of Information: Patient History Limitations: Reports: No Limitations - History of Present Illness Introduction:: 08/30/20 Sign Language Instructor cart used for Romansh speaking patient. Patient presents to OB today with complaints of contractions that started strongly this morning. She had contractions with diarrhea yesterday but they seemed to stop. She is 38 1/7 weeks today and is a with two prior sections. Her last baby was delivered at 38 1/7 as well. She is Hep B/C/HIV/RPR all non reactive, G BS negative, A positive blood type. She has an uncomplicated other than COVID in July and a recent UTI that was treated. Today she complains of low abdominal pain near her scar that is constant. 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 There was slight change in her vaginal exam and given her amount of abdominal pain with two prior sections we have decided that the benefit of delivery vs the risk of continuing is greater. Timing/Duration: Reports: minutes: (3-5 palpating moderate) Location, : Reports: Pelvic Quality: Reports: Sharp Severity: Moderate Pain Score: 10 Improves with: Reports: None Worsens with: Reports: None - Related Data Allergies/Adverse Reactions: Allergies Allergy/AdvReac Type Severity Reaction Status Date / Time No Known Allergies Allergy Verified 08/30/20 10:41 Home Medications: Home Meds Ferrous Sulfate 1 tab PO DAILY 08/07/20 [History] Pnv No.95/Ferrous Fum/Folic AC [ Caplet] 1 tab PO DAILY 08/07/20 [History] Past Medical History - Past Health History Medical/Surgical History: Denies Medical/Surgical History Gastrointestinal History: Reports: Other (See Below) Other Gastrointestinal History: 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 Para: 2 LMP (Approximate): - Past Surgical History Head Surgeries/Procedures: Reports: None HEENT Surgical History: Reports: Tonsillectomy Female Surgical History: Reports: Section Dermatological Surgical History: Reports: None Social & Family History - Family History Family Medical History: No Pertinent Family History - Tobacco Use Tobacco Use Status *Q: Never Tobacco User - Caffeine Use Caffeine Use: Reports: None - Alcohol Use Date of Last Drink: 08/30/20 Time of Last Drink: 06:00 - Recreational Drug Use Recreational Drug Use: No H&P Review of Systems - Review of Systems: Review Of Systems: See Below General: Reports: No Symptoms HEENT: Reports: No Symptoms Pulmonary: Reports: No Symptoms Cardiovascular: Reports: No Symptoms Gastrointestinal: Reports: No Symptoms Genitourinary: Reports: No Symptoms Musculoskeletal: Reports: No Symptoms Skin: Reports: No Symptoms Psychiatric: Reports: No Symptoms Neurological: Reports: No Symptoms Hematologic/Lymphatic: Reports: No Symptoms Immunologic: Reports: No Symptoms L&D Exam - Exam Exam: See Below - Vital Signs Vital Signs: Last Vital Signs Temp 36.3 C 08/30/20 09:20 Pulse 108 H 08/30/20 09:20 Resp 20 08/30/20 09:20 BP 130/78 08/30/20 09:40 Pulse Ox Weight: 79.832 kg - OB Specific Contraction Duration (sec): 30-40 Contraction Frequency (min): 5 Contraction Intensity: Mild Movement: Active Heart Tones: Present Heart Tones per Min: 150 Heart Rate (FHR) Variability: Moderate (6-25 bmp) Presentation: Vertex Estimated Weight: 6 lbs - Fox Score Fox Score Cervix Position: Posterior Fox Score Consistency: Soft Fox Score Effacement: >80% Fox Score Dilation: 1-2 cm Fox Score Infant's Station: +1, +2 Fox Score Total: 9 - Exam General: Alert, Oriented HEENT: PERRLA, Conjunctiva Clear, Hearing Intact, Mucosa Moist & [place], Nares Patent, Normal Nasal Septum, Posterior Pharynx Clear, Pupils Equal, Pupils Reactive Neck: Supple, Trachea Midline Lungs: Clear to Auscultation, Normal Respiratory Effort Cardiovascular: Regular Rate, Regular Rhythm GI/Abdominal Exam: Normal Bowel Sounds, No Organomegaly, Pelvis Stable, Tender Rectal Exam: Normal Exam Genitourinary: Normal external exam, Normal bimanual exam, Cervical dilitation. No: Vaginal bleeding Back Exam: Normal Inspection, Full Range of Motion Extremities: Normal Inspection, Normal Range of Motion, Non-Tender, No Pedal Edema, Normal Capillary Refill Skin: Warm, Dry, Intact Neurological: Cranial Nerves Intact, Reflexes Equal Bilateral Psychiatric: Alert, Normal Affect, Normal Mood - Patient Data Lab Results Last 24 hrs: Laboratory Results - last 24 hr 08/30/20 08/30/20 Range/Units 09:23 09:48 WBC 6.1 (4.5-11.0) K/uL RBC 4.18 (3.30-5.50) M/uL Hgb 12.2 (12.0-15.0) g/dL Hct 36.3 (36.0-48.0) % MCV 87 (80-98) fL MCH 29 (27-31) pg MCHC 34 (32-36) % Plt Count 187 (150-400) K/uL Neut % (Auto) 53.8 (36-66) % Lymph % (Auto) 32.1 (24-44) % [place] % (Auto) 13.4 H (2-6) % Eos % (Auto) 0.5 L (2-4) % Baso % (Auto) 0.2 (0-1) % Urine Color Yellow (YELLOW) Urine Appearance Cloudy A (CLEAR) Urine pH 7.0 (5.0-8.0) Ur Specific [place] 1.020 (1.008-1.030) Urine Protein Negative (NEGATIVE) mg/dL Urine Glucose (UA) Negative (NEGATIVE) mg/dL Urine Ketones Negative (NEGATIVE) mg/dL Urine Occult Blood Negative (NEGATIVE) Urine Nitrite Negative (NEGATIVE) Urine Bilirubin Negative (NEGATIVE) Urine Urobilinogen 0.2 (0.2-1.0) EU/dL Ur Leukocyte Esterase Moderate H (NEGATIVE) Urine RBC 0-5 (0-5) Urine WBC 10-20 H (0-5) Ur Epithelial Cells Moderate Amorphous Sediment Few Urine Bacteria Moderate Urine Mucus Rare Urine Other See note Result Diagrams: 08/30/20 09:48 - Problem List (1) 38 weeks gestation of SNOMED Code(s): 11214891 ICD Code: Z3A.38 - 38 WEEKS GESTATION OF Status: Acute Current Visit: Yes Problem List Initiated/Reviewed/Updated: Yes Orders Last 24hrs: Active Orders 24 hr Category Date Time Status TYPE AND SCREEN [BBK] Routine Lab 08/30/20 11:34 Ordered Acetaminophen [Tylenol Extra Strength] Med 08/30/20 09:37 Active 1,000 mg PO Q4H PRN Medication Orders Acetaminophen (Acetaminophen 500 Mg Tab) 1,000 mg PO Q4H PRN PRN Reason: Pain Last Admin: 08/30/20 09:47 Dose: 1,000 mg Documented by: JAROD Assessment/Plan Comment:: 08/30/20 at 38 1/7 in early labor, claudio every 3 minutes or so mildly SVE 1.5/90/+2, cervix soft, was 1/75/+1-2 on arrival Patient having 10/10 abdominal pain and crying out. We did monitor her for several hours before deciding to proceed with section today, unknown if this is related to contractions or surgical scar Repeat section, doing today due to amount of pain and small amount of cervical change, likely early labor GBS negative Anticipating boy, last baby 5 lb 13 oz, estimating about the same weight today Plan: non-emergent section today for term in early labor
[2020-08-30] MEDS ORDERED: Oxytocin 10 Units/1 ML SDV ONE ×2 (11:42→13:12)
[2020-08-30] MEDS ORDERED: Lactated Ringers 1,000 ML IV ONE (11:52)
[2020-08-30] MEDS ORDERED: Sodium Chloride 0.9% 10 ML Syringe FLUSH PRN (11:52)
[2020-08-30] MEDS ORDERED: HYDROmorphone/Normal Saline 15 MG/30 ML PCA IV PRN (12:46)
[2020-08-30] MEDS ORDERED: Naloxone 0.4 MG/ML SDV IVPUSH PRN (12:46)
[2020-08-30] MEDS ORDERED: Succinylcholine 200 MG/10 ML MDV ONE (13:01)
[2020-08-30] MEDS ORDERED: Propofol 200 MG/20 ML SDV ONE (13:01)
[2020-08-30] MEDS ORDERED: Lactated Ringers 1,000 ML ONE ×2 (13:12→13:14)
[2020-08-30] MEDS ORDERED: cefOXitin 2 GM Vial ONE (13:13)
[2020-08-30] MEDS ORDERED: fentaNYL 250 MCG/5 ML SDV ONE (13:15)
[2020-08-30] MEDS ORDERED: Rocuronium 50 MG/5 ML Vial ONE (13:20)
[2020-08-30] MEDS ORDERED: Glycopyrrolate 0.2 MG/ML 5 ML MDV ONE (13:41)
[2020-08-30] MEDS ORDERED: Ondansetron 4 MG/2 ML SDV ONE (13:41)
[2020-08-30] MEDS ORDERED: Neostigmine Methylsulfate 1 MG/ML 5 ML Syringe ONE (13:41)
[2020-08-30] MEDS ORDERED: Dexamethasone 4 MG/ML SDV ONE (13:41)
[2020-08-30] MEDS ORDERED: fentaNYL 100 MCG/2 ML SDV ONE (13:57)
[2020-08-30] MEDS ORDERED: Ondansetron 4 MG/2 ML SDV IVPUSH PRN (16:00)
[2020-08-30] MEDS ORDERED: hydrOXYzine HCL 100 MG/2 ML SDV IM PRN (16:00)
[2020-08-30] MEDS ORDERED: Naloxone 0.4 MG/ML SDV IV PRN (16:00)
[2020-08-30] MEDS: Dextrose 5%-Lactated Ringers 1,000 ML IV SCH ×2 (16:35→23:46)
[2020-08-30] MEDS: Acetaminophen 500 MG Tab PO SCH ×2 (17:07→22:24)
[2020-08-30] MEDS: Ibuprofen 600 MG Tab PO SCH ×2 (17:07→22:24)
[2020-08-30] MEDS: cefOXitin 2 GM in Sodium Chloride 0.9% 50 ML IV SCH (19:38)
[2020-08-31] MEDS: cefOXitin 2 GM in Sodium Chloride 0.9% 50 ML IV SCH ×4 (02:05→20:47)
[2020-08-31] MEDS: Acetaminophen 500 MG Tab PO SCH ×4 (05:53→21:00)
[2020-08-31] MEDS: Ibuprofen 600 MG Tab PO SCH ×4 (05:53→21:01)
[2020-08-31] MEDS: Dextrose 5%-Lactated Ringers 1,000 ML IV SCH (05:58)
[2020-08-31] MEDS ORDERED: Dextrose 5%-Lactated Ringers 1,000 ML IV SCH (06:53)
[2020-08-31] MEDS ORDERED: Ondansetron 4 MG Tab.DIS PO PRN (06:54)
[2020-08-31] MEDS ORDERED: HYDROmorphone 2 MG Tab PO PRN (06:54)
--- NOTE | 2020-08-31 08:22 | PN ---
DATE OF SERVICE: 08/31/2020 SUBJECTIVE: Taya is postop day 1 following a with delivery of male . She is holding her baby, happy, alert. Citizen Of [place] is limited. She has no questions or concerns. Vital signs have been stable. Oral intake 1900. Urine output via Mead catheter is 1650. REVIEW OF SYSTEMS: Remainder of review of systems negative for any pertinent positives and negatives. OBJECTIVE: GENERAL: Taya is a pleasant 30-year-old female. Alert and orientated. VITAL SIGNS: TPR is 97.4, 84, 16. Blood pressure 109/61. HEENT: Negative. NECK: Supple. HEART: Regular rate and rhythm. LUNGS: Clear. ABDOMEN: Incision looks good. EXTREMITIES: Without peripheral edema. ASSESSMENT: Repeat section, 08/30/2020. PLAN: 1. Discontinue Mead catheter. 2. Decrease IV to 100 mL per hour. 3. Discontinue CASING FLUID TENDER. 4. Discontinue continuous pulse ox. 5. May shower. 6. Colace 100 mg b.i.d. orally. 7. Dulcolax tablets 10 mg p.o. b.i.d. 8. Dilaudid 2 mg q.6 hours p.r.n. pain. 9. Zofran ODT 4 mg q.4 hours p.r.n. nausea. 10.Saline lock if oral intake adequate. 11.We will evaluate p.r.n. or in a.m. Lazara Whalen PA-C /[id number]
[2020-08-31] MEDS: Docusate Sodium 100 MG Cap PO SCH ×2 (09:31→20:57)
[2020-08-31] MEDS: Bisacodyl 5 MG Tab PO SCH ×2 (09:31→20:57)
[2020-08-31] MEDS: HYDROmorphone 2 MG Tab PO PRN ×3 (13:02→22:10)
[2020-09-01] MEDS: cefOXitin 2 GM in Sodium Chloride 0.9% 50 ML IV SCH ×4 (03:17→20:14)
[2020-09-01] MEDS: HYDROmorphone 2 MG Tab PO PRN ×5 (04:18→23:07)
[2020-09-01] MEDS: Acetaminophen 500 MG Tab PO SCH ×4 (06:31→21:11)
[2020-09-01] MEDS: Ibuprofen 600 MG Tab PO SCH ×4 (06:31→21:11)
[2020-09-01] MEDS ORDERED: Sodium Chloride 0.9% 10 ML Syringe IV SCH (08:15)
[2020-09-01] MEDS: Bisacodyl 5 MG Tab PO SCH ×2 (08:51→20:14)
[2020-09-01] MEDS: Docusate Sodium 100 MG Cap PO SCH ×2 (08:51→20:14)
[2020-09-02] MEDS: cefOXitin 2 GM in Sodium Chloride 0.9% 50 ML IV SCH ×2 (02:41→07:35)
[2020-09-02] MEDS: HYDROmorphone 2 MG Tab PO PRN ×2 (04:38→09:11)
[2020-09-02] MEDS: Acetaminophen 500 MG Tab PO SCH ×2 (05:05→09:11)
[2020-09-02] MEDS: Ibuprofen 600 MG Tab PO SCH ×2 (05:06→09:11)
--- NOTE | 2020-09-02 08:40 | PN ---
DATE OF SERVICE: 09/01/2020 The patient has been afebrile with stable vital signs. She is having trouble getting her bowels going. We will work on that today. Otherwise, the baby seemed to be adjusting somewhat better. The feeding on the baby is a little bit problematic, perhaps improving. I suspect she will be ready for discharge home tomorrow. Andrew Alexander MD /[id number]
[2020-09-02] MEDS: Bisacodyl 5 MG Tab PO SCH (09:11)
[2020-09-02] MEDS: Docusate Sodium 100 MG Cap PO SCH (09:11)
--- NOTE | 2020-09-02 15:43 | DISCH ---
FINAL DIAGNOSIS: Term with history of previous section. OPERATIVE PROCEDURE: Repeat section. SUMMARY: This is a 30-year-old presenting with active labor. She was scheduled for a repeat section next week and came in labor at this time and underwent a section on the day of admission. She did require general anesthetic as the spinal was not effective in terms of causing of anesthesia but otherwise, things were uncomplicated. Baby and mother both of them well at this point and will be discharged home and she will be instructed to continue the vitamins and the medications include Tylenol 1 g p.o. q.i.d. p.r.n., Motrin 400 mg p.o. q.6 hours p.r.n., #40, refill x1, and Dilaudid 2 mg p.o. q.4 hours p.r.n., #18. She will be following up with Lazara Whalen in [facility] on 10/10. /[id number]
--- NOTE | 2020-09-12 13:02 | OR ---
DATE OF PROCEDURE: 08/30/2020 SURGEON: Andrew Alexander MD PREOPERATIVE DIAGNOSIS: Term with history of previous section. POSTOPERATIVE DIAGNOSIS: Term with history of previous section. PROCEDURE PERFORMED: Repeat section. ANESTHESIA: Spinal converted to general. NURSE SEXUAL ASSAULT: Jacquie Cloud CNM INDICATION FOR PROCEDURE: This is a 30-year-old female, who had been scheduled for repeat section, who presents now with active labor. Plan is to proceed with a repeat section at this time. Potential risks of the procedure including bleeding, infection, and injury to the mother and/or baby were all reviewed, and the patient wishes to proceed. DETAILS OF PROCEDURE: The patient was taken to the operating room, and after spinal anesthetic was placed, it was noted to be inadequate. A second spinal was then placed which was likewise inadequate, and the decision at that point to proceed with a general anesthetic. The patient was positioned in a supine position. Mead catheter was inserted with a roll underneath the right hip to offload the vena cava. After the abdomen was prepped and draped, the previous Pfannenstiel incision was reused and carried down through the skin, subcutaneous tissue, and anterior rectus sheath. Subrectus sheath flaps were then raised superiorly and inferiorly and the midline peritoneum divided. The patient was noted to have a large amount of intraperitoneal scarring which delayed the delivery somewhat, but subsequent baby's scores were 9 and 9 at one and five minutes respectively. At any rate, eventually, the adhesions were taken down and peritoneal reflection of the bladder on the uterus divided and reflected downward. A low transverse uterine segment incision was made, and a viable male was delivered through vertex presentation, routine care, given off the field per Jacquie Cloud CNM. The patient was given IV and intrauterine oxytocin and IV cefoxitin. Good uterine contractions were noted. The placental and membranes were delivered without difficulty. The uterus was then closed with 2-0 Vicryl stitch as was the bladder flap. The midline peritoneum was then approximated with a #2 Vicryl stitch as was the anterior rectus sheath, and then the subcutaneous tissue approximated with some 4-0 Vicryl stitch and skin with 4-0 Vicryl subcuticular stitch. Surgical glue was applied. The patient was taken to the recovery room in satisfactory condition. The nurse utility bill collection clerk, Jacquie Cloud, assisted in this case as per the ACOG recommendations. Andrew Alexander MD /[id number]
== END 2020-09-02 11:00 | disposition home or self-care (01) | DRG 788 ==
LOC: JP.OBCHECK 09:17 → JP.OB 10:54 → JP.MS 13:14
PROVIDERS: ADMIT Surgery; ATTEND Surgery
PROC: 10D00Z1 Extraction of Products of Conception, Low, Open Approach (ICD-10-PCS; principal; 2020-08-30)
DX: O34.211 Maternal care for low transverse scar from previous cesarean delivery (principal); Z3A.38 38 weeks gestation of pregnancy; Z37.0 Single live birth
CPT/HCPCS: 36415; 51702; 80305-QW; 81001; 85025; 85027; 86850; 86900; 86901; 88307; 94762; 99211; A9270-GY; J0330; J0694; J1100; J1170; J2405; J2590; J2704; J2710; J3010; J3490; J7120; J7121

== ENCOUNTER 2020-10-22 15:09 | Emergency (ER) | payer MEDICAID ==
[2020-10-22] MEDS ORDERED: Morphine 2 MG/ML SYRINGE IVPUSH ONE (15:48)
[2020-10-22] MEDS ORDERED: Ondansetron 4 MG/2 ML SDV IVPUSH ONE (15:49)
[2020-10-22] MEDS ORDERED: Pantoprazole 40 MG Vial IVPUSH ONE (15:49)
[2020-10-22] MEDS ORDERED: Sodium Chloride 0.9% 1,000 ML IV SCH (16:00)
--- NOTE | 2020-10-22 16:00 | EDM.PDOC ---
ED HPI GENERAL MEDICAL PROBLEM - General Chief Complaint: Abdominal Pain Stated Complaint: STOMACH PAIN Time Seen by Provider: 10/22/20 15:29 Source of Information: Reports: Patient History Limitations: Reports: No Limitations - History of Present Illness INITIAL COMMENTS - FREE TEXT/NARRATIVE: 30 yo female presents to ER with ABD pain, RUQ and epigastric pain. This began earlier this afternoon after eating Ribs and Rice. She has had gallbladder inflammation for many years. She is scheduled for removal of the gallbladder Nov 15. 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: - Past Surgical History Head Surgeries/Procedures: Reports: None HEENT Surgical History: Reports: Tonsillectomy Female Surgical History: Reports: Section Social & Family History - Family History Family Medical History: No Pertinent Family History - Tobacco Use Tobacco Use Status *Q: Never Tobacco User - Caffeine Use Caffeine Use: Reports: None - Recreational Drug Use Recreational Drug Use: No ED ROS GENERAL - Review of Systems Review Of Systems: See Below Constitutional: Denies: Fever Respiratory: Denies: Shortness of Breath, Wheezing Cardiovascular: Denies: Chest Pain GI/Abdominal: Reports: Abdominal Pain ED EXAM, GI/ABD - Physical Exam Exam: See Below Exam Limited By: No Limitations General Appearance: Alert, WD/WN, Mild Distress Respiratory/Chest: No Respiratory Distress, Lungs Clear, Normal Breath Sounds. No: Crackles, Rhonchi, Wheezing Cardiovascular: Regular Rate, Rhythm, No Murmur GI/Abdominal Exam: Soft, Distended, Tender (RUQ and epigastric) Neurological: Alert, Oriented Psychiatric: Normal Affect, Normal Mood Skin Exam: Warm, Dry, Intact Course - Vital Signs Last Recorded V/S: Last Vital Signs Temp 36.8 C 10/22/20 15:35 Pulse 83 10/22/20 16:20 Resp 16 10/22/20 16:20 BP 105/60 10/22/20 16:20 Pulse Ox 98 10/22/20 16:20 - Orders/Labs/Meds Orders: Active Orders 24 hr Category Date Time Status Sodium Chloride 0.9% [Normal Saline] 1,000 ml Med 10/22/20 16:00 Active IV ASDIRECTED Medication Orders Sodium Chloride (Normal Saline) 1,000 mls @ 999 mls/hr IV ASDIRECTED VINOD Last Admin: 10/22/20 16:14 Dose: 999 mls/hr Documented by: PAPA Labs: Laboratory Tests 10/22/20 10/22/20 Range/Units 16:05 16:05 WBC 7.1 (4.5-11.0) K/uL RBC 4.30 (3.30-5.50) M/uL Hgb 12.3 D (12.0-15.0) g/dL Hct 36.7 (36.0-48.0) % MCV 85 (80-98) fL MCH 29 (27-31) pg MCHC 34 (32-36) % Plt Count 307 (150-400) K/uL Neut % (Auto) 61.0 (36-66) % Lymph % (Auto) 28.7 (24-44) % Sandoval % (Auto) 9.6 H (2-6) % Eos % (Auto) 0.6 L (2-4) % Baso % (Auto) 0.1 (0-1) % Sodium 139 L (140-148) mmol/L Potassium 3.7 (3.6-5.2) mmol/L Chloride 104 (100-108) mmol/L Carbon Dioxide 24 (21-32) mmol/L Anion Gap 14.7 H (5.0-14.0) mmol/L BUN 10 D (7-18) mg/dL Creatinine 0.6 (0.6-1.0) mg/dL Est Cr Clr Drug Dosing 128.35 mL/min Estimated GFR (MDRD) > 60 (>60) Glucose 86 (74-106) mg/dL Calcium 8.4 L (8.5-10.1) mg/dL Total Bilirubin 0.8 D (0.2-1.0) mg/dL AST 71 H D (15-37) U/L ALT 54 D (12-78) U/L Alkaline Phosphatase 92 (46-116) U/L Total Protein 7.0 (6.4-8.2) g/dL Albumin 3.3 L (3.4-5.0) g/dL Globulin 3.7 H (2.3-3.5) g/dL Albumin/Globulin Ratio 0.9 L (1.2-2.2) Meds: Medications Generic Name Dose Route Start Last Admin Trade Name Ya PRN Reason Stop Dose Admin Sodium Chloride 1,000 mls @ 999 mls/hr 10/22/20 16:00 10/22/20 16:14 Normal Saline IV 999 mls/hr ASDIRECTED VINOD Administration Discontinued Medications Generic Name Dose Route Start Last Admin Trade Name Freq PRN Reason Stop Dose Admin Morphine Sulfate 2 mg 10/22/20 15:48 10/22/20 16:08 Morphine 2 Mg/Ml Syringe IVPUSH 10/22/20 15:49 2 mg ONETIME ONE Administration Ondansetron HCl 4 mg 10/22/20 15:49 10/22/20 16:14 Ondansetron 4 Mg/2 Ml Sdv IVPUSH 10/22/20 15:50 4 mg ONETIME ONE Administration Pantoprazole Sodium 40 mg 10/22/20 15:49 10/22/20 16:14 Pantoprazole 40 Mg Vial IVPUSH 10/22/20 15:50 40 mg ONETIME ONE Administration - Re-Assessments/Exams Free Text/Narrative Re-Assessment/Exam: 10/22/20 17:08 30 yo female presents to the ER with ABD pain. She is accompanied by her significant other. She does have surgical cholecystectomy scheduled Nov 15. pain improved but did not resolve with IV pain management. WBC is normal mild elevation in AST. will discharge home pain management with instructions to avoid fatty foods Departure - Departure Time of Disposition: 17:04 Disposition: Home, Self-Care 01 Condition: Good Clinical Impression: Cholecystitis - Discharge Information *PRESCRIPTION DRUG MONITORING PROGRAM REVIEWED*: Not Applicable *COPY OF PRESCRIPTION DRUG MONITORING REPORT IN PATIENT TEE: Not Applicable Instructions: Cholecystitis, [id number] Referrals: PCP,None [Primary Care Provider] - Forms: ED Department Discharge Additional Instructions: continue with plan for surgical intervention Nov 15 avoid fatty foods as this will make your pain worse - fried foods, dairy especially cheese, fatty cuts of meat Ketoralac as needed for pain Sepsis Event Note (ED) - Evaluation Sepsis Screening Result: Possible Sepsis Risk - Focused Exam Vital Signs: Vital Signs Temp Pulse Resp BP Pulse Ox 10/22/20 16:20 83 16 105/60 98 10/22/20 15:35 36.8 C 109 H 24 H 143/93 H 97 10/22/20 15:27 36.8 C 109 H 24 H 143/93 H 97 - My Orders Last 24 Hours: My Active Orders 10/22/20 16:00 Sodium Chloride 0.9% [Normal Saline] 1,000 ml IV ASDIRECTED - Assessment/Plan Last 24 Hours: My Active Orders 10/22/20 16:00 Sodium Chloride 0.9% [Normal Saline] 1,000 ml IV ASDIRECTED
== END 2020-10-22 17:19 | disposition home or self-care (01) ==
LOC: JP.ED 15:09
DX: K81.9 Cholecystitis, unspecified (principal)
CPT/HCPCS: 36415; 80053; 85025; 96374; 96375; 99284; C9113; J2270; J2405; J7030

== ENCOUNTER 2020-11-10 12:03 | Emergency (ER) | payer MEDICAID ==
[2020-11-10] MEDS ORDERED: Morphine 2 MG/ML SYRINGE IVPUSH ONE (12:31)
[2020-11-10] MEDS ORDERED: Ondansetron 4 MG/2 ML SDV IVPUSH ONE (12:31)
[2020-11-10] MEDS ORDERED: Sodium Chloride 0.9% 1,000 ML IV SCH (12:45)
[2020-11-10] MEDS ORDERED: Ketorolac 30 MG/ML SDV IVPUSH ONE (13:45)
--- NOTE | 2020-11-10 13:46 | EDM.PDOC ---
ED HPI GENERAL MEDICAL PROBLEM - General Chief Complaint: Abdominal Pain Stated Complaint: GALLBLADDER PAIN Time Seen by Provider: 11/10/20 12:14 Source of Information: Reports: Patient History Limitations: Reports: No Limitations - History of Present Illness INITIAL COMMENTS - FREE TEXT/NARRATIVE: 30 yo presents to ER with RUQ ABD pain. She has gall bladder removal scheduled for later this week. She was doing well with pain control on ketorolac but has ran out of this medication. She ate fried eggs with cheese this AM and soon after sever RUQ pain. afebrile. She has been managing well prior to today. He significant other in the room and aids in history collection. 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: - Past Surgical History Head Surgeries/Procedures: Reports: None HEENT Surgical History: Reports: Tonsillectomy GI Surgical History: Reports: Cholecystectomy Female Surgical History: Reports: Section Dermatological Surgical History: Reports: None Social & Family History - Family History Family Medical History: No Pertinent Family History - Tobacco Use Tobacco Use Status *Q: Never Tobacco User Second Hand Smoke Exposure: No - Caffeine Use Caffeine Use: Reports: Coffee, Soda, Tea - Recreational Drug Use Recreational Drug Use: No ED ROS GENERAL - Review of Systems Review Of Systems: See Below Constitutional: Denies: Fever, Chills, Fatigue Respiratory: Denies: Shortness of Breath, Wheezing Cardiovascular: Denies: Chest Pain GI/Abdominal: Reports: Abdominal Pain, Nausea. Denies: Black Stool, Vomiting Skin: Denies: Rash ED EXAM, GI/ABD - Physical Exam Exam: See Below Exam Limited By: No Limitations General Appearance: Alert, WD/WN, Mild Distress Head: Atraumatic, Normocephalic Neck: Normal Inspection, Supple, Non-Tender, Full Range of Motion. No: Lymphadenopathy (R), Lymphadenopathy (L) Respiratory/Chest: No Respiratory Distress, Lungs Clear, Normal Breath Sounds. No: Crackles, Rhonchi, Wheezing Cardiovascular: Regular Rate, Rhythm GI/Abdominal Exam: Normal Bowel Sounds, Soft, No Distention, Tender (ruq) Neurological: Alert, Oriented Psychiatric: Normal Affect, Normal Mood Skin Exam: Warm, Dry, Intact, No Rash Course - Vital Signs Last Recorded V/S: Last Vital Signs Temp 36.6 C 11/10/20 12:21 Pulse 77 11/10/20 12:21 Resp 20 11/10/20 12:21 BP 122/72 11/10/20 12:21 Pulse Ox 98 11/10/20 12:21 - Orders/Labs/Meds Orders: Active Orders 24 hr Category Date Time Status Sodium Chloride 0.9% [Normal Saline] 1,000 ml Med 11/10/20 12:45 Active IV ASDIRECTED Medication Orders Sodium Chloride (Normal Saline) 1,000 mls @ 999 mls/hr IV ASDIRECTED VINOD Last Admin: 11/10/20 13:03 Dose: 999 mls/hr Documented by: LIBAN Meds: Medications Generic Name Dose Route Start Last Admin Trade Name Freq PRN Reason Stop Dose Admin Sodium Chloride 1,000 mls @ 999 mls/hr 11/10/20 12:45 11/10/20 13:03 Normal Saline IV 999 mls/hr ASDIRECTED VINOD Administration Discontinued Medications Generic Name Dose Route Start Last Admin Trade Name Freq PRN Reason Stop Dose Admin Ketorolac Tromethamine 30 mg 11/10/20 13:45 Ketorolac 30 Mg/Ml Sdv IVPUSH 11/10/20 13:46 ONETIME ONE Morphine Sulfate 2 mg 11/10/20 12:31 11/10/20 13:02 Morphine 2 Mg/Ml Syringe IVPUSH 11/10/20 12:32 2 mg ONETIME ONE Administration Ondansetron HCl 4 mg 11/10/20 12:31 11/10/20 12:56 Ondansetron 4 Mg/2 Ml Sdv IVPUSH 11/10/20 12:32 4 mg ONETIME ONE Administration - Re-Assessments/Exams Free Text/Narrative Re-Assessment/Exam: 11/10/20 13:53 pt evaluated on presentation to the ER in mild distress. She has scheduled gall bladder removal on . Pain dramatically improved with pain management. afebrile. Will continue with plan for surgical intervention later this week. refilled home pain management medications. Departure - Departure Time of Disposition: 13:40 Disposition: Home, Self-Care 01 Condition: Good Clinical Impression: Biliary colic, Cholecystitis Cholelithiasis Qualifiers: Cholelithiasis location: gallbladder Cholecystitis presence: with cholecystitis Cholecystitis acuity: acute and chronic Biliary obstruction: with biliary obstruction Qualified Code(s): K80.13 - Calculus of gallbladder with acute and chronic cholecystitis with obstruction - Discharge Information *PRESCRIPTION DRUG MONITORING PROGRAM REVIEWED*: Not Applicable *COPY OF PRESCRIPTION DRUG MONITORING REPORT IN PATIENT TEE: Not Applicable Instructions: Cholecystitis, [id number] Referrals: Esther Melendez CNM [Primary Care Provider] - Forms: ED Department Discharge Additional Instructions: continue with plan for surgical intervention Nov 15 avoid fatty foods as this will make your pain worse - fried foods, dairy especially cheese, fatty cuts of meat for pain control adhere to a plant based diet until surgery Ketoralac as needed for pain Sepsis Event Note (ED) - Focused Exam Vital Signs: Vital Signs Temp Pulse Resp BP Pulse Ox 11/10/20 12:21 36.6 C 77 20 122/72 98 - My Orders Last 24 Hours: My Active Orders 11/10/20 12:45 Sodium Chloride 0.9% [Normal Saline] 1,000 ml IV ASDIRECTED - Assessment/Plan Last 24 Hours: My Active Orders 11/10/20 12:45 Sodium Chloride 0.9% [Normal Saline] 1,000 ml IV ASDIRECTED
== END 2020-11-10 14:28 | disposition home or self-care (01) ==
LOC: JP.ED 12:03
DX: K80.13 Calculus of gallbladder with acute and chronic cholecystitis with obstruction (principal)
CPT/HCPCS: 96374; 96375; 99283; J1885; J2270; J2405; J7030

== ENCOUNTER 2020-11-15 08:08 | Day surgery (SDC) | payer MEDICAID ==
[~2020-11-15 08:08] MED LIST: Acetaminophen 500 MG Tab PO ONE; Dexamethasone 4 MG/ML SDV ONE; Glycopyrrolate 0.2 MG/ML 5 ML MDV ONE; Neostigmine Methylsulfate 1 MG/ML 5 ML Syringe ONE; Ondansetron 4 MG/2 ML SDV ONE; Propofol 200 MG/20 ML SDV ONE; Rocuronium 50 MG/5 ML Vial ONE; Succinylcholine 200 MG/10 ML MDV ONE; fentaNYL 250 MCG/5 ML SDV ONE
[2020-11-15] MEDS: Dextrose 5%-Lactated Ringers 1,000 ML IV SCH ×2 (08:33→15:46)
[2020-11-15] MEDS ORDERED: cefOXitin 2 GM in Sodium Chloride 0.9% 50 ML IV ONE (09:00)
[2020-11-15] MEDS ORDERED: Albuterol/Ipratropium 3.0-0.5 MG/3 ML Neb Soln NEB ONE (09:00)
[2020-11-15] MEDS ORDERED: Bupivacaine 0.5%/EPINEPHrine 1:200,000 50 ML MDV ONE (09:30)
[2020-11-15] MEDS ORDERED: Ropivacaine 34 ML, dexAMETHasone 8 MG, EPINEPHrine 0.4 MG, Sodium Chloride 0.9% 43.6 ML NERVRT SCH ×4 (09:45)
[2020-11-15] MEDS ORDERED: fentaNYL 100 MCG/2 ML SDV ONE ×2 (10:26→11:10)
[2020-11-15] MEDS ORDERED: Lactated Ringers 1,000 ML ONE (11:17)
[2020-11-15] MEDS ORDERED: Labetalol 20 MG/4 ML Syringe ONE (11:29)
[2020-11-15] MEDS ORDERED: Naloxone 0.4 MG/ML SDV ONE (11:50)
[2020-11-15] MEDS ORDERED: hydrOXYzine HCL 100 MG/2 ML SDV IM ONE (12:03)
[2020-11-15] MEDS ORDERED: fentaNYL 100 MCG/2 ML SDV IVPUSH ONE (12:13)
[2020-11-15] MEDS ORDERED: hydrOXYzine HCL 100 MG/2 ML SDV IM PRN (13:03)
[2020-11-15] MEDS ORDERED: Cyclobenzaprine 10 MG Tab PO PRN (13:03)
[2020-11-15] MEDS ORDERED: HYDROmorphone 1 MG/ML Syringe IV PRN (14:00)
[2020-11-15] MEDS ORDERED: HYDROmorphone 0.5 MG/0.5 ML Syringe IVPUSH PRN (14:00)
[2020-11-15] MEDS ORDERED: Pantoprazole 40 MG Vial IVPUSH SCH (14:00)
[2020-11-15] MEDS ORDERED: Ondansetron 4 MG/2 ML SDV IVPUSH PRN (14:00)
[2020-11-15] MEDS: oxyCODONE 5 MG Tab PO PRN ×2 (15:45→19:55)
[2020-11-15] MEDS: cefOXitin 2 GM in Sodium Chloride 0.9% 50 ML IV SCH ×2 (15:45→21:52)
[2020-11-16] MEDS: oxyCODONE 5 MG Tab PO PRN ×2 (02:51→07:57)
[2020-11-16] MEDS: Dextrose 5%-Lactated Ringers 1,000 ML IV SCH (02:53)
[2020-11-16] MEDS: cefOXitin 2 GM in Sodium Chloride 0.9% 50 ML IV SCH (03:01)
[2020-11-16] MEDS ORDERED: Sertraline 25 MG Tab PO SCH (09:00)
--- NOTE | 2020-11-17 16:29 | DISCH ---
ADMISSION DIAGNOSIS: Acute cholecystitis. DISCHARGE DIAGNOSES: Diagnostic laparoscopy with: 1. Cholecystectomy. 2. Repair of incarcerated incisional hernia. POSTOPERATIVE DIAGNOSES: 1. Chronic cholecystitis/cholelithiasis. 2. Incarcerated incisional hernia. Date of procedure 11/15/2020. Surgeon: Andrew Alexander MD. HISTORY: Taya is a pleasant 30-year-old female with right upper quadrant abdominal pain. After preoperative evaluation and discussion of possible risks and possible complications, she wished to proceed with surgical procedure. HOSPITAL COURSE: Taya had her surgery on 11/15/2020. She had no operative complications. On postoperative day #1, her pain was well managed. Her oral intake adequate. Vital signs stable. Activity good and she was able to be discharged to home. PHYSICAL EXAMINATION: GENERAL: Taya is a pleasant 30-year-old female. VITAL SIGNS: Height 5 feet 6 inches, weight is 150 pounds. TPR is 96.8, 67, 16. Blood pressure 107/58. HEENT: Negative. NECK: Supple. HEART: Regular rate and rhythm. LUNGS: Clear. ABDOMEN: Dressings dry and intact. Abdominal binder is on. EXTREMITIES: Without peripheral edema. DISPOSITION: Discharged to home. CONDITION: Stable and improving. FOLLOWUP: With Lazara Whalen PA-C on 11/22/[address] [facility]. HOME MEDICATIONS: Oxycodone 5 mg q.4 hours p.r.n. pain #12. Take Tylenol 1000 mg q.6 hours p.r.n. pain and resume home medications. DIET: Regular diet as tolerated. Drink 8 to 10 glasses of water a day. ACTIVITY: No lifting greater than 10 pounds for 2 weeks. Driving: Do not drive for 1 week and while on narcotic pain medication. Shower/bathing: May shower. Wound incision care: Keep site clean and dry. Wear abdominal binder for 2 weeks and then as tolerated. Notify provider if any fever, increased pain, swelling, redness, drainage, nausea, or vomiting. Use incentive spirometer 10 times every hour while awake. /[id number]
--- NOTE | 2020-11-26 12:46 | OR ---
DATE OF PROCEDURE: 11/15/2020 SURGEON: Andrew Alexander MD PREOPERATIVE DIAGNOSIS: Chronic cholecystitis and cholelithiasis. POSTOPERATIVE DIAGNOSES: 1. Chronic cholecystitis and cholelithiasis. 2. Incarcerated incisional hernia. OPERATIVE PROCEDURE: Diagnostic laparoscopy with: 1. Cholecystectomy (32851). 2. Repair of incarcerated incisional hernia ([id number]). ANESTHESIA: General. AIR SAMPLING AND MONITORING: Lazara Whalen PA-C INDICATION FOR PROCEDURE: A 30-year-old presenting with a picture of chronic cholecystitis and cholelithiasis with some recurrent biliary colic. Plan is to proceed with a laparoscopic or if necessary open cholecystectomy. Potential risks of procedure including bleeding, infection, injury to viscera including common bile duct, potential of stones moving into the common bile duct requiring additional procedures for correction were discussed, and the patient wishes to proceed. DETAILS OF PROCEDURE: The patient was taken to the operating room and placed in a supine position. After general endotracheal anesthesia was induced, the abdomen was prepped and draped. Transverse epigastric incision was made and peritoneal cavity entered under direct vision with an Optiview trocar, inflated to 15 mmHg pressure with CO2. Laparoscope was reinserted. No underlying trocar insertion site injuries were seen. Laparoscope was reinserted in this area, went down towards the umbilical area. The patient was noted to have an incisional hernia. This was associated with some splaying of the rectus musculature just inferior to the umbilicus and it contained some incarcerated omentum within it, the latter was taken down with Harmonic scalpel, and after a 5 mm trocar was placed in the right subcostal area, the subumbilical trocar was then intentionally placed through the area of the hernia to allow subsequent closure. The camera was then brought down to the periumbilical trocar site and the gallbladder was retracted anteriorly and laterally, which was noted to be thick walled and chronically inflamed in appearance. Gallbladder was retracted anteriorly and laterally, and dissection began on the gallbladder neck with Harmonic scalpel and continued down to the gallbladder neck and cystic duct junction area. This area was then isolated as well as adjacent cystic artery. The gallbladder neck and cystic duct junction was noted to be somewhat thick walled and was taken with MATT stapler. Following this, the artery was taken with clips and divided distally with Harmonic scalpel. Gallbladder was then dissected off the gallbladder bed and delivered through the epigastric trocar site containing numerous stones which were then removed along with the gallbladder through the epigastric trocar site. The latter had to be enlarged somewhat to allow passage of the gallbladder and stones within it. With the camera port now brought back down into the epigastric trocar site, the incisional hernia was closed with placement of 0 Vicryl sutures using a laparoscopic suturing device, and once these were in place, the trocar was then placed back in position. A Kamlesh-Morel drain was then taken out through the right lateral trocar site and positioned in the area of the gallbladder fossa. The trocars were then removed. The fascia at the epigastric site was closed with 0 Vicryl stitch as well and the hernia repair suture then tied, and prior to closure, the patient underwent bilateral transversus abdominis plane blocks and all the incisions were closed at the skin level with some 4-0 Vicryl stitch and anesthetized with 1% lidocaine mixed with Marcaine. Physician fire control assistant, Lazaar Whalen, played an essential role in assisting in this case, helping to position the patient, retract structures as needed, as well as suturing and cutting sutures when indicated. Her presence improved patient's safety and decreased operative time. Andrew Alexander MD /[id number]
== END 2020-11-16 10:20 | disposition home or self-care (01) ==
LOC: JP.SDS 08:08 → JP.MS 11:45 → JP.SDS 11-16 10:20
PROVIDERS: ATTEND Surgery
DX: K80.10 Calculus of gallbladder with chronic cholecystitis without obstruction (principal); K43.0 Incisional hernia with obstruction, without gangrene; Z98.890 Other specified postprocedural states
CPT/HCPCS: 36415; 80053; 81025; 82247; 84075; 85025; 85027; 88304; A9270-GY; C9113; J0171; J0330; J0694; J1100; J1170; J2310; J2405; J2704; J2710; J2795; J3010; J3410; J3490; J7120; J7121

== ENCOUNTER 2020-11-27 08:40 | Emergency (ER) | payer MEDICAID ==
[2020-11-27] MEDS ORDERED: Alum Hydrox/Mag Hydrox/Simeth 15 ML, Lidocaine 2% 15 ML PO ONE ×2 (09:12)
--- NOTE | 2020-11-27 09:17 | EDM.PDOC ---
ED HPI GENERAL MEDICAL PROBLEM - General Chief Complaint: Abdominal Pain Stated Complaint: UPPER CHEST PAIN Time Seen by Provider: 11/27/20 09:05 Source of Information: Reports: Patient, Family, Old Records, RN History Limitations: Reports: No Limitations - History of Present Illness INITIAL COMMENTS - FREE TEXT/NARRATIVE: 30 yo female had a cholecystectomy about a week ago per Dr. Roque. She has had progressive epigastric pain since then. She missed her follow up appt and is awaiting a rescheduled appt. No fever, vomiting, hematemesis, or hematochezia. BM's normal. Does have nausea and dizziness. Onset: Gradual Onset Date: 11/20/20 Duration: Week(s): (1), Getting Worse Location: Reports: Abdomen Quality: Reports: Ache Severity: Moderate Improves with: Reports: None Worsens with: Reports: Other (time) Context: Reports: Other (See HPI) Associated Symptoms: Reports: Nausea/Vomiting. 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 History: Reports: - Infectious Disease History Infectious Disease History: Reports: Chicken Pox, Measles, Other (See Below) Other Infectious Disease History: Covid in July 2020 - Past Surgical History Head Surgeries/Procedures: Reports: None HEENT Surgical History: Reports: Tonsillectomy GI Surgical History: Reports: Cholecystectomy Female Surgical History: Reports: Section Dermatological Surgical History: Reports: None Social & Family History - Family History Family Medical History: No Pertinent Family History - Tobacco Use Tobacco Use Status *Q: Never Tobacco User - Caffeine Use Caffeine Use: Reports: Soda - Recreational Drug Use Recreational Drug Use: No ED ROS GENERAL - Review of Systems Review Of Systems: See Below Constitutional: Reports: No Symptoms HEENT: Reports: No Symptoms Respiratory: Reports: No Symptoms Cardiovascular: Reports: Lightheadedness Endocrine: Reports: No Symptoms GI/Abdominal: Reports: Abdominal Pain, Nausea. Denies: Black Stool, Bloody Stool, Constipation, Diarrhea, Distension, Hematemesis, Hematochezia : Reports: No Symptoms Musculoskeletal: Reports: No Symptoms Skin: Reports: No Symptoms Neurological: Reports: No Symptoms ED EXAM, GI/ABD - Physical Exam Exam: See Below Exam Limited By: No Limitations General Appearance: Alert, WD/WN, No Apparent Distress Eyes: Bilateral: Normal Appearance Ears: Normal External Exam, Normal Canal, Hearing Grossly Normal, Normal TMs Nose: Normal Inspection, No Blood Throat/Mouth: Normal Inspection, Normal Lips, Normal Oropharynx, Normal Voice, No Airway Compromise Head: Atraumatic, Normocephalic Neck: Normal Inspection, Non-Tender Respiratory/Chest: No Respiratory Distress, Lungs Clear, Normal Breath Sounds, No Accessory Muscle Use Cardiovascular: Regular Rate, Rhythm, No Edema GI/Abdominal Exam: Normal Bowel Sounds, Soft, No Distention, Tender (epigastric). No: Non-Tender, Distended, Guarding, Rigid, Rebound Back Exam: Normal Inspection. No: CVA Tenderness (R), CVA Tenderness (L) Extremities: Normal Inspection, Normal Range of Motion, Non-Tender, No Pedal Edema. No: Pedal Edema Neurological: Alert, Oriented, CN II-XII Intact, Normal Cognition, No Motor/Sensory Deficits Psychiatric: Normal Affect, Normal Mood Skin Exam: Warm, Dry, Intact, Normal Color, No Rash Course - Vital Signs Last Recorded V/S: Last Vital Signs Temp 36.6 C 11/27/20 08:53 Pulse 79 11/27/20 08:53 Resp 16 11/27/20 08:53 BP 138/76 11/27/20 08:53 Pulse Ox 97 11/27/20 08:53 - Orders/Labs/Meds Orders: Active Orders 24 hr Category Date Time Status UA W/MICROSCOPIC [URIN] Stat Lab 11/27/20 09:12 Ordered Labs: Laboratory Tests 11/27/20 11/27/20 Range/Units 09:20 09:20 WBC 7.0 (4.5-11.0) K/uL RBC 4.36 (3.30-5.50) M/uL Hgb 12.2 (12.0-15.0) g/dL Hct 37.3 (36.0-48.0) % MCV 86 (80-98) fL MCH 28 (27-31) pg MCHC 33 (32-36) % Plt Count 287 (150-400) K/uL C-Reactive Protein 0.22 (0.0-0.3) mg/dL Lipase 75 (73-393) U/L Meds: Medications Discontinued Medications Generic Name Dose Route Start Last Admin Trade Name Ya PRN Reason Stop Dose Admin Acetaminophen 1,000 mg 11/27/20 09:37 11/27/20 09:42 Acetaminophen 500 Mg Tab PO 11/27/20 09:38 1,000 mg ONETIME ONE Administration Al Hydroxide/Mg Hydroxide 15 0 ml 11/27/20 09:12 11/27/20 09:18 ml/ Lidocaine HCl 15 ml PO 11/27/20 09:13 30 ml ONETIME ONE Administration Famotidine 20 mg 11/27/20 09:36 11/27/20 09:42 Famotidine 20 Mg Tab PO 11/27/20 09:37 20 mg ONETIME ONE Administration - Re-Assessments/Exams Free Text/Narrative Re-Assessment/Exam: 11/27/20 09:36 Pain is reduced after GI cocktail po Departure - Departure Time of Disposition: 10:00 Disposition: Home, Self-Care 01 Condition: Fair Clinical Impression: Gastritis Qualifiers: Gastritis type: unspecified gastritis Chronicity: acute Gastritis bleeding: without bleeding Qualified Code(s): K29.00 - Acute gastritis without bleeding - Discharge Information *PRESCRIPTION DRUG MONITORING PROGRAM REVIEWED*: Not Applicable *COPY OF PRESCRIPTION DRUG MONITORING REPORT IN PATIENT TEE: Not Applicable Instructions: Gastritis, Adult, [id number] Referrals: Esther Melendez CNM [Primary Care Provider] - Forms: ED Department Discharge Additional Instructions: Take acetaminophen 1000 mg every 6 hrs as needed for pain relief. Avoid ibuprof en, aspirin, Aleve, alcohol, carbonated beverages or caffeine. Take Famotidine 20 mg every 12 hrs for stomach healing. May take Maalox 30 ml after meals and at bedtime also for stomach pain as ne eded. Call and make an appt for ER follow up with your provider. Sepsis Event Note (ED) - Focused Exam Vital Signs: Vital Signs Temp Pulse Resp BP Pulse Ox 11/27/20 08:53 36.6 C 79 16 138/76 97 - My Orders Last 24 Hours: My Active Orders 11/27/20 09:12 UA W/MICROSCOPIC [URIN] Stat - Assessment/Plan Last 24 Hours: My Active Orders 11/27/20 09:12 UA W/MICROSCOPIC [URIN] Stat
[2020-11-27] MEDS ORDERED: Famotidine 20 MG Tab PO ONE (09:36)
[2020-11-27] MEDS ORDERED: Acetaminophen 500 MG Tab PO ONE (09:37)
== END 2020-11-27 10:00 | disposition home or self-care (01) ==
LOC: JP.ED 08:40
DX: K29.00 Acute gastritis without bleeding (principal); Z90.49 Acquired absence of other specified parts of digestive tract
CPT/HCPCS: 36415; 83690; 85027; 86140; 99284; A9270

== ENCOUNTER 2021-04-11 08:16 | Emergency (ER) | payer MEDICAID ==
[2021-04-11] MEDS: Famotidine 20 MG Tab PO ONE (09:06)
[2021-04-11] MEDS: Ondansetron 4 MG/2 ML SDV IVPUSH ONE (09:06)
[2021-04-11] MEDS: Sodium Chloride 0.9% 1,000 ML IV SCH ×2 (09:06→10:02)
[2021-04-11] MEDS: Loperamide 2 MG Cap PO ONE (10:02)
== END 2021-04-11 11:42 | disposition home or self-care (01) ==
LOC: JP.ED 08:16
DX: E86.0 Dehydration (principal); K52.9 Noninfective gastroenteritis and colitis, unspecified
CPT/HCPCS: 36415; 80053; 81001; 85025; 87086; 96374; 99284; 99284-25; A9270-GY; J2405; J7030

== ENCOUNTER 2022-01-14 10:49 | Emergency (ER) | payer MEDICAID ==
[2022-01-14] MEDS ORDERED: Sodium Chloride 0.9% 10 ML Syringe FLUSH PRN (12:17)
[2022-01-14] MEDS ORDERED: Ondansetron 4 MG/2 ML SDV IVPUSH ONE (12:17)
[2022-01-14] MEDS ORDERED: Sodium Chloride 0.9% 1,000 ML IV SCH (12:30)
== END 2022-01-14 14:05 | disposition home or self-care (01) ==
LOC: JP.ED 10:49
DX: K52.9 Noninfective gastroenteritis and colitis, unspecified (principal); Z20.822 Contact with and (suspected) exposure to COVID-19
CPT/HCPCS: 36415; 80048; 83605; 85025; 87635; 96361; 96374; 99284; J2405; J3490; J7030; U0002